=== PATIENT | male | born 1970 | race Caucasian/White ===

== ENCOUNTER 2017-03-29 12:38 | Inpatient (IN) | payer OTHER ==
--- NOTE | 2017-03-29 13:43 | Emergency Department Report ---
Entered by SETH ARROYO, acting as scribe for YURIDIA DENTON NP. Chief Complaint: Extremity Injury, Lower Stated Complaint: LFT FOOT INFECTION Time Seen by Provider: 03/29/17 13:36 - HPI History of Present Illness: 46 y/o non-toxic, non ill-appearing male in no acute distress presents to ED c/ o left foot pain, swelling, numbness with sore noted. Reports small blister on his foot 3 months ago that has progressively worsened. Denies fever or reduced ROM. Foot wrapped [employer]ANDER by clinic this morning, referred to ED. Stock Tracer used, pt speaks romanian. - ROS Review of Systems: - chest pain, SOB, abdominal pain, fever + numbness, pain, ulceration with swelling to left plantar foot - Exam Vital Signs: Vital Signs 03/29/17 13:27 Temperature 99.8 F H Pulse Rate 101 H Respiratory 18 Rate Blood Pressure 145/97 O2 Sat by Pulse 98 Oximetry Physical Exam: Left foot: 2+ edema, warm to touch. Skin: ulceration noted to plantar of left foot. MSE screening note: Focused history and physical exam performed. Due to findings the following was ordered: Lactic Acid, CMP, CBC, CK, INR ED Disposition for MSE Condition: Stable This documentation as recorded by the scribe,SETH ARROYO,accurately reflects the service I personally performed and the decisions made by BERTIN caputo MARTIN, JACQUES.
[2017-03-29 14:03] LABS: Basophils % (Auto) 0.2 % (0.0-1.8); Eosinophils % (Auto) 0.1 % (0.0-4.3); Hematocrit 45.8 % (35.5-45.6); Hemoglobin 15.3 gm/dl (11.8-15.2); Mean Corpuscular HGB Conc 33 % (32-34); Mean Corpuscular Hemoglobin 30 pg (28-32); Mean Corpuscular Volume 89 fl (84-94); Platelet Count 190 K/mm3 (140-440); Red Blood Count 5.14 M/mm3 (3.65-5.03); White Blood Count 17.3 K/mm3 (4.5-11.0)
[2017-03-29 14:13] LABS: INR 1.01 (0.87-1.13)
[2017-03-29 14:24] LABS: Alanine Aminotransferase 48 units/L (7-56); Albumin 4.2 g/dL (3.9-5); Albumin/Globulin Ratio 1.2 %; Alkaline Phosphatase 99 units/L (35-129); Anion Gap 22 mmol/L; BUN/Creatinine Ratio 17.14; Blood Urea Nitrogen 12 mg/dL (9-20); Calcium 9.1 mg/dL (8.4-10.2); Carbon Dioxide 23 mmol/L (22-30); Chloride 90.6 mmol/L (98-107); Creatine Kinase 85 units/L (55-170); Glucose 310 mg/dL (75-100); Potassium 4.6 mmol/L (3.6-5.0); Sodium 131 mmol/L (137-145); Total Protein 7.8 g/dL (6.3-8.2)
[2017-03-29] MEDS ORDERED: TYLENOL PO ONE (20:02)
[2017-03-29] MEDS ORDERED: VANCOMYCIN/NS 1 GM/250 ML 1 GM/250 ML BAG IV ONE (20:02)
--- NOTE | 2017-03-29 20:05 | Emergency Department Report ---
HPI - General Chief Complaint: Extremity Injury, Lower Time Seen by Provider: 03/29/17 19:33 - HPI HPI: This is a 46-year-old male who presents to the emergency department with complaint of pain and infection to the bottom of the left foot is been going on for about the past 3 months. The patient is a diabetic but is not currently on any medications over the past few months. He has not taken anything for his pain prior to presentation. His and one crutch in order to ambulate and try not to bear weight on that foot. Patient was sent in by Dr Meadows of [facility] referencing an infected foot ulcer. ED Past Medical Hx - Past Medical History Previous Medical History?: Yes Hx Diabetes: Yes Additional medical history: left foot infection/pain - Surgical History Past Surgical History?: Yes Additional Surgical History: left knee - Social History Smoking Status: Never Smoker Substance Use Type: Alcohol, Prescribed - Medications Home Medications: Home Medications Medication Instructions Recorded Confirmed Last Taken Type metFORMIN [Glucophage] 500 mg PO BID 06/18/16 03/29/17 Unknown History ED Review of Systems ROS: Stated complaint: LFT FOOT INFECTION Other details as noted in HPI Comment: All other systems reviewed and negative Constitutional: denies: chills, fever Eyes: denies: eye pain, eye discharge, vision change ENT: denies: ear pain, throat pain Respiratory: denies: cough, shortness of breath, wheezing Cardiovascular: denies: chest pain, palpitations Gastrointestinal: denies: abdominal pain, nausea, diarrhea Genitourinary: denies: urgency, dysuria Musculoskeletal: arthralgia. denies: back pain Skin: lesions, other (ulcer/wound) Neurological: denies: headache, weakness, paresthesias Physical Exam - Physical Exam Vital Signs: Vital Signs 03/29/17 03/29/17 13:27 19:32 Temperature 99.8 F H Pulse Rate 101 H 98 H Respiratory 18 18 Rate Blood Pressure 145/97 Blood Pressure 131/84 [Left] O2 Sat by Pulse 98 98 Oximetry Physical Exam: GENERAL: The patient is well-developed well-nourished. HEENT: Normocephalic. Atraumatic. Extraocular motions are intact. Patient has moist mucous membranes. Pupils equal reactive to light bilaterally. NECK: Supple. Trachea is midline. CHEST/LUNGS: Clear to auscultation. There is no respiratory distress noted. HEART/CARDIOVASCULAR: Regular. There is no tachycardia. There is no gallop rub or murmur. ABDOMEN: Abdomen is soft, nontender. Patient has normal bowel sounds. There is no abdominal distention. SKIN: There is some warmth and nonpitting swelling to the circumferential left foot. There is some mild erythema to the left foot as well. There is a circular ulceration to the distal plantar left foot that is about 3 cm in diameter and is a stage II. No current bleeding, weeping or drainage. NEURO: The patient is awake, alert, and oriented. The patient is cooperative. The patient has no focal neurologic deficits. The patient has normal speech. MUSCULOSKELETAL: There is some tenderness to palpation to the left foot where the patient has a diabetic ulcer and possible cellulitis. Cap refill less than 2 seconds. Pedal pulses +2 over 4 bilaterally. ED Course Vital Signs 03/29/17 03/29/17 13:27 19:32 Temperature 99.8 F H Pulse Rate 101 H 98 H Respiratory 18 18 Rate Blood Pressure 145/97 Blood Pressure 131/84 [Left] O2 Sat by Pulse 98 98 Oximetry ED Medical Decision Making - Lab Data Result diagrams: 03/29/17 13:50 03/29/17 13:50 - Radiology Data Radiology results: report reviewed, image reviewed interpreted by me: X-ray of the left foot shows some soft tissue swelling but otherwise no signs of osteomyelitis, fracture, dislocation or any other acute process. CT of the left foot shows osseous structures are intact without an acute fracture or dislocation. Bone mineralization is normal. No evidence of generalized or localized osteopenia. There is a moderate soft tissue swelling of the midfoot and forefoot with no evidence of formed abscess. Cellulitis suspected. - Medical Decision Making 46-year-old male presents with a progressively worsening left foot ulceration and pain with concern for infection, sent in by his PCP. Patient has a fever, leukocytosis and is diabetic. X-ray did not show any signs of osteomyelitis. A CT was done with IV contrast to look for abscess but no abscess was found. There is no sign of any gangrene or any gas forming bacterial infection. However there is some swelling with concern for cellulitis. Patient was started on antibiotics after blood cultures were obtained. He will be admitted to the hospital for further evaluation and treatment and is been accepted for admission by the hospitalist, Dr. Hoang. - Differential Diagnosis abscess, osteomyelitis, cellulitis Critical Care Time: No Critical care attestation.: If time is entered above; I have spent that time in minutes in the direct care of this critically ill patient, excluding procedure time. ED Disposition Clinical Impression: Cellulitis of foot, Hyperglycemia Diabetic foot ulcer Qualifiers: Diabetic foot ulcer location: midfoot Diabetes mellitus type: type 1 Laterality : left Non-pressure ulcer stage: unspecified non-pressure ulcer stage Qualified Code(s): E10.621 - Type 1 diabetes mellitus with foot ulcer; L97.429 - Non- pressure chronic ulcer of left heel and midfoot with unspecified severity Leukocytosis Qualifiers: Leukocytosis type: unspecified Qualified Code(s): D72.829 - Elevated white blood cell count, unspecified Disposition: OP ADMITTED IP TO THIS HOSP Is pt being admited?: Yes Condition: Stable Instructions: Diabetes Mellitus Type 2 in Adults (ED) Referrals: PRIMARY CARE, [Primary Care Provider] - 3-5 Days Time of Disposition: 01:48
[2017-03-29] MEDS ORDERED: NACL 0.9% 1000 ML 1,000 ML IV ONE (21:36)
--- NOTE | 2017-03-29 22:10 | XRay Report ---
FINAL REPORT PROCEDURE: XR FOOT 3 LT TECHNIQUE: Left foot, three views HISTORY: foot pain, infection, r/o osteomyelitis COMPARISON: No prior studies are available for comparison. FINDINGS: No acute fracture or dislocation is seen. No radiopaque foreign body is seen. No cortical erosions are visible. IMPRESSION: No cortical erosions are identified to suggest advanced osteomyelitis. If there is concern for early osteomyelitis, recommend evaluation with MRI
[2017-03-29] MEDS ORDERED: NACL ONE (22:23)
--- NOTE | 2017-03-30 00:14 | Cat Scan Report ---
FINAL REPORT PROCEDURE: CT LOWER EXTREMITY LT W CON TECHNIQUE: Computerized axial tomography of the LEFT foot was performed after the IV injection of iodinated nonionic contrast. HISTORY: Foot infection, abscess COMPARISON: Left foot x-ray of the same date FINDINGS: Bony structures including marrow spaces: Normal. Neurovascular structures: Normal. Soft tissues: Moderate soft tissue swelling in the mid foot and forefoot. This is consistent with cellulitis. No formed abscess.. Joint space: Normal. Abnormal enhancement: None. IMPRESSION: The osseous structures are intact without an acute fracture or dislocation. The bone mineralization is normal. No evidence of generalized or localized osteopenia. There is moderate soft tissue swelling in the midfoot and forefoot with no evidence of formed abscess. Cellulitis is suspected..
[2017-03-30] MEDS ORDERED: TYLENOL PO PRN (04:04)
[2017-03-30] MEDS ORDERED: DULCOLAX PR PRN (04:04)
[2017-03-30] MEDS ORDERED: ZOFRAN IV PRN (04:04)
[2017-03-30] MEDS ORDERED: MILK OF MAGNESIA PO PRN (04:04)
--- NOTE | 2017-03-30 04:07 | History and Physical Report ---
History of Present Illness Date of examination: 03/30/17 History of present illness: 46-year-old man with a history of diabetes comes emergency room with complaint of left foot pain and swelling. 3 months ago he sustained the injury, he is not quite sure how that happened, he has been ambulating and working, and his pain has gotten worse. He has not taken any antibiotic or seen a physician, he denies any fever or chills Patient denies chest pain, palpitation, shortness of breath, cough, abdominal pain, hematochezia, dysuria, frequency, focal weakness, dysarthria, fever chills , polydipsia polyuria, hot or cold intolerance, easy bruisability, or rash or bleeding from mucosal membrane, rhinorrhea, epistaxis, earache, tinnitus, blurry vision, eye discharge, anxiety, depression. Other review of systems negative PAST SURGICAL HISTORY: Knee surgery SOCIAL HISTORY: Denies all, tobacco, drugs FAMILY HISTORY: Diabetes Medications and Allergies Allergies Allergy/AdvReac Type Severity Reaction Status Date / Time No Known Allergies Allergy Verified 06/18/16 10:33 Home Medications Medication Instructions Recorded Confirmed Last Taken Type metFORMIN [Glucophage] 500 mg PO BID 06/18/16 03/29/17 Unknown History Exam - Physical Exam Narrative exam: Gen. appearance: Patient lying in bed, no apparent distress HEENT: Normocephalic, atraumatic, pupils equally round and reactive to light, extraocular movement intact, and no sclericterus,. No JVD or thyromegaly or nodule,neck supple, no carotid bruit ,mucous membranes moist, no exudate or erythema Heart: S1, S2, regular rate and rhythm Lungs: Clear to auscultation bilaterally, breathing comfortable Abdomen: Positive bowel sounds, nontender, nondistended, no organomegaly Extremity: Left foot on the bottom, tender, swollen, no erythema, purulent discharge noted , No cyanosis, clubbing Skin: No rash, nodules, warm, dry Neuro: Oriented 3, cranial nerves II-12 intact, speech is fluent, motor and sensory intact - Constitutional Vitals: Temp Pulse Resp BP Pulse Ox 99.8 F H 84 16 107/69 99 03/29/17 13:27 03/30/17 00:00 03/30/17 00:00 03/30/17 00:00 03/30/17 00:00 Results - Labs CBC & Chem 7: 03/29/17 13:50 03/29/17 13:50 Labs: Abnormal lab results 03/29/17 03/29/17 03/29/17 Range/Units 13:22 13:50 13:50 WBC 17.3 H (4.5-11.0) K/mm3 RBC 5.14 H (3.65-5.03) M/mm3 Hgb 15.3 H (11.8-15.2) gm/dl Hct 45.8 H (35.5-45.6) % Lymph % (Auto) 4.2 L (13.4-35.0) % [place] % (Auto) 7.7 H (0.0-7.3) % Lymph # 0.7 L (1.2-5.4) K/mm3 [place] # 1.3 H (0.0-0.8) K/mm3 Seg Neutrophils % 87.8 H (40.0-70.0) % Seg Neutrophils # 15.2 H (1.8-7.7) K/mm3 Sodium 131 L (137-145) mmol/L Chloride 90.6 L (98-107) mmol/L Creatinine 0.7 L (0.8-1.5) mg/dL Glucose 310 H (75-100) mg/dL POC Glucose 276 H (70-105) 03/30/17 Range/Units 00:05 WBC (4.5-11.0) K/mm3 RBC (3.65-5.03) M/mm3 Hgb (11.8-15.2) gm/dl Hct (35.5-45.6) % Lymph % (Auto) (13.4-35.0) % [place] % (Auto) (0.0-7.3) % Lymph # (1.2-5.4) K/mm3 [place] # (0.0-0.8) K/mm3 Seg Neutrophils % (40.0-70.0) % Seg Neutrophils # (1.8-7.7) K/mm3 Sodium (137-145) mmol/L Chloride (98-107) mmol/L Creatinine (0.8-1.5) mg/dL Glucose (75-100) mg/dL POC Glucose 252 H (70-105) Assessment and Plan Diabetic foot ulcer Diabetes type 2 Admit to medicine Start IV Zosyn, obtain wound culture, follow blood cultures start morphine for pain, DVT prophylaxis Check fingersticks and start insulin sliding scale
[2017-03-30] MEDS: ZOSYN/NS 4.5GM/100ML 4.5 GM/100 ML VIAL IV SCH ×3 (05:52→21:20)
[2017-03-30] MEDS ORDERED: D50W (25GM) IV PRN (06:04)
[2017-03-30] MEDS: NOVOLOG SUB-Q SCH ×4 (07:54→22:33)
--- NOTE | 2017-03-30 11:12 | Admit Criteria Form ---
Admission Criteria Documentation: CELLULITIS Clinical Indications for Admission to Inpatient Care (Place 'X' for any and all applicable criteria): Admission is indicated for ANY ONE of the following(1)(2)(3)(4)(5): [ ]I. Limb-threatening infection [X]II. High-risk comorbid condition as indicated by ANY ONE of the following: [X]a) Uncontrolled diabetes (eg, HbA1c greater than 10% (0.1)) [ ]b) Cirrhosis [ ]c) Neutropenia [ ]d) Asplenia [ ]e) Immunosuppression [ ]f) Symptomatic heart failure [ ]III. Failure of outpatient therapy as indicated by ALL of the following: [ ]a) Progression or no improvement after adequate trial (minimum of 48 hours, with longer period for stable lower extremity infection) [ ]b) Adequate antibiotic regimen as indicated by use of ANY ONE of the following: [ ]i) First-generation cephalosporin (e.g., cephalexin) [ ]ii) Antistaphylococcal penicillin (e.g., dicloxacillin) [ ]iii) Penicillin-allergic patient regimen (clindamycin, extended-spectrum fluoroquinolone, or doxycycline) [ ]iv) Resistant organism (eg, methicillin-resistant Staphylococcus aureus) regimen (6) [ ]c) Outpatient intravenous therapy regimen is not appropriate due to ANY ONE of the following. (7)(8)(9)(10): [ ]i) It was tried and was not successful (eg, progression of infection). [ ]ii) It is not available or cannot be arranged in a clinically appropriate time frame (e.g., the next day). [ ]iii) Clinical presentation (eg, acuity of infection, rapidity of progression, confirmed or suspected bacteremia) is judged to require ALL of the following: [ ]1) Immediate initiation of intravenous therapy ( eg, cannot wait for next day) [ ]2) Intensity of patient monitoring and observation (eg, vital sign measurement, checks for infection progression) that cannot be provided at other than inpatient level of care [ ]IV. Mental status changes [ ]V. Bacteremia [ ]. Hemodynamic instability [ ]VII. Suspected necrotizing soft tissue infection (e.g., gas in tissue)(11)( 12) [ ]VIII. Orbital infection (13)(14) [ ]IX. Associated surgical procedure (e.g., abscess drainage, debridement) not amenable to outpatient, emergency department, or observation care [ ]X. Cutaneous gangrene [ ]XI. High fever (temperature greater than 39.5 degrees C (103.1 degrees F) (oral)) not responsive to outpatient, emergency department, or observation care therapy [ ]XIII. Inpatient admission required rather than observation care (Also use Cellulitis: Observation Care as appropriate) because of ANY ONE of the following : [ ]a) Periorbital or perineal infection that is severe or worsening [ ]b) Severe pain requiring acute inpatient management [ ]c) IV fluid to replace significant ongoing (e.g., for over 24 hours) losses (greater than 3L/m2 per day) [ ]d) Compartment syndrome monitoring (17) [ ]e) Strict or protective (eg, laminar flow) isolation [ ]f) Urgent debridement or skin grafting [ ]g) Bone or joint debridement [ ]h) Immediate inpatient surgery [ ]i) Other condition, treatment or monitoring requiring inpatient admission Extended stay beyond goal length of stay may be needed for (1)(18): [ ]a) Necrotizing soft tissue infection or fasciitis [ ]b) Gram-negative infection [ ]c) Methicillin-resistant Staphylococcal aureus (MRSA) infection [ ]d) Peripheral venous insufficiency with cellulitis [ ]e) Extensive edema [ ]f) Sepsis or continued Hemodynamic instability [ ]g) Continued high fever or mental status change [ ]h) Bacteremia [ ]i) Active serious comorbid conditions ( eg, heart failure, renal insufficiency) The original [employer] [facility] content created by [employer] [email or web address] has been revised. The portions of the content which have been revised are identified through the use of italic text or in bold, and [facility] has neither reviewed nor approved the modified material. All other unmodified content is copyright [facility] [employer] [facility] Please see references footnoted in the original [facility] [employer] edition 2016 Admission Criteria Met: Yes
[2017-03-30] MEDS: LOVENOX SUB-Q SCH (12:10)
--- NOTE | 2017-03-30 15:53 | Consultation ---
History of Present Illness - Reason for Consult Consult date: 03/30/17 - History of Present Illness Mr. Lee is a 46-year-old man with uncontrolled diabetes who presents with left foot pain, which is concerning for a diabetic foot infection. He says he initially injured the same foot 2-3 months ago. Plain film imaging of his left foot showed no foreing body. A CT left leg also showed no abscess or definitive evidence of osteomyelitis. There were features of cellulitis. Blood cultures remain in progress. A left foot wound shows a mild inflammatory response and polymicrobial roverto. He is prescribed Zosyn empirically. ID is consulted for further antibiotic recommendations. Past History Past Medical History: diabetes Social history: lives with family. denies: IV drug use Family history: diabetes Medications and Allergies Allergies Allergy/AdvReac Type Severity Reaction Status Date / Time No Known Allergies Allergy Verified 06/18/16 10:33 Home Medications Medication Instructions Recorded Confirmed Last Taken Type metFORMIN [Glucophage] 500 mg PO BID 06/18/16 03/29/17 Unknown History Active Meds: Active Medications Acetaminophen (Tylenol) 650 mg PO Q4H PRN PRN Reason: Pain MILD(1-3)/Fever >100.5/GASTELUM Last Admin: 03/30/17 15:22 Dose: 650 mg Bisacodyl (Dulcolax) 10 mg [place] QDAY PRN PRN Reason: Constipation unrelieved by MOM Dextrose (D50w (25gm)) 50 ml IV PRN PRN PRN Reason: Hypoglycemia Enoxaparin Sodium (Lovenox) 40 mg SUB-Q QDAY [facility] Last Admin: 03/30/17 12:10 Dose: 40 mg Piperacillin Sod/Tazobactam Sod (Zosyn/Ns 4.5gm/100ml) 4.5 gm in 100 mls @ 200 mls/hr IV Q8HR [facility] PRN Reason: Protocol Last Admin: 03/30/17 13:56 Dose: 200 mls/hr Insulin Aspart (Novolog) 0 units SUB-Q ACHS [facility] PRN Reason: Protocol Last Admin: 03/30/17 12:20 Dose: 4 units Magnesium Hydroxide (Milk Of Magnesia) 30 ml PO Q4H PRN PRN Reason: Constipation Morphine Sulfate (Morphine) 2 mg IV Q4H PRN PRN Reason: Pain, Moderate (4-6) Ondansetron HCl (Zofran) 4 mg IV Q8H PRN PRN Reason: N/V unrelieved by Reglan Review of Systems All systems: negative (except as noted below) Constitutional: no fever, no chills, no sweats Cardiovascular: no chest pain, no shortness of breath Respiratory: no cough, no shortness of breath Gastrointestinal: no nausea, no vomiting, no diarrhea Musculoskeletal: leg numbness/tingling, other (left foot pain) Integumentary: no rash, no pruritis Physical Examination - Constitutional Vitals: Vital Signs Temp Pulse Resp BP Pulse Ox 99.8 F H 74 18 113/69 96 03/30/17 07:00 03/30/17 07:00 03/30/17 07:00 03/30/17 07:00 03/30/17 07:00 Temperature -Last 24 Hours Temperature 99.8 F Temperature 99.5 F General appearance: Present: no acute distress, well-nourished - EENT Eyes: Absent: conjunctival injection - Neck Neck: Present: supple - Respiratory Respiratory effort: normal Respiratory: bilateral: CTA, negative: wheezing - Cardiovascular Rhythm: regular Heart Sounds: Present: S1 & S2 - Extremities Extremities: No edema Extremity abnormal: other (left foot with a packed plantar ulcer at base of 3rd- 4th toes, minimal surrounding erythema, no increased warmth) - Abdominal General gastrointestinal: Present: soft, non-distended - Integumentary Integumentary: Absent: rash Results - Labs CBC & Chem 7: 03/29/17 13:50 03/29/17 13:50 Labs: Abnormal lab results 03/30/17 03/30/17 Range/Units 06:08 11:33 POC Glucose 211 H 234 H (70-105) Microbiology 03/30/17 05:00 Foot - Left Wound Culture - Preliminary 03/29/17 20:43 Peripheral/Venous Blood Culture - Preliminary Culture in Progress 03/29/17 20:10 Peripheral/Venous Blood Culture - Preliminary Culture in Progress Left Foot Xray - no foreign body; cannot fully exclude osteomyelitis CT Left Lower Extremity - no abscess; cellulitis Assessment and Plan - Patient Problems (1) Cellulitis of foot Current Visit: Yes Status: Acute Plan to address problem: 1. Good glycemic control. 2. Antibiotics for 10-14 days using wound culture results to guide therapy. (2) Diabetic foot ulcer Current Visit: Yes Status: Acute Qualifiers: Diabetic foot ulcer location: midfoot Diabetes mellitus type: type 1 Laterality: left Non-pressure ulcer stage: unspecified non-pressure ulcer stage Qualified Code(s): E10.621 - Type 1 diabetes mellitus with foot ulcer; L97.429 - Non-pressure chronic ulcer of left heel and midfoot with unspecified severity Plan to address problem: 1. Await results of wound culture. Anticipate oral option to complete at home, perhaps 10-14-day course. 2. Keep current antibiotic for now.
[2017-03-31 04:59] LABS: Basophils % (Auto) 0.3 % (0.0-1.8); Eosinophils % (Auto) 0.6 % (0.0-4.3); Hematocrit 39.7 % (35.5-45.6); Hemoglobin 13.3 gm/dl (11.8-15.2); Mean Corpuscular HGB Conc 34 % (32-34); Mean Corpuscular Hemoglobin 29 pg (28-32); Mean Corpuscular Volume 87 fl (84-94); Platelet Count 184 K/mm3 (140-440); Red Blood Count 4.57 M/mm3 (3.65-5.03); Red Cell Distribution Width 13.5 % (13.2-15.2); White Blood Count 11.6 K/mm3 (4.5-11.0)
[2017-03-31 05:08] LABS: Anion Gap 17 mmol/L; BUN/Creatinine Ratio 14.28; Blood Urea Nitrogen 10 mg/dL (9-20); Calcium 8.4 mg/dL (8.4-10.2); Carbon Dioxide 25 mmol/L (22-30); Chloride 96.3 mmol/L (98-107); Glucose 224 mg/dL (75-100); Potassium 4.2 mmol/L (3.6-5.0); Sodium 134 mmol/L (137-145)
[2017-03-31] MEDS: ZOSYN/NS 4.5GM/100ML 4.5 GM/100 ML VIAL IV SCH ×3 (05:43→22:59)
[2017-03-31] MEDS: NOVOLOG SUB-Q SCH ×4 (08:19→22:59)
--- NOTE | 2017-03-31 09:25 | Progress Note ---
Assessment and Plan Assessment and plan: 46-year-old male with a past medical history of uncontrolled diabetes who stopped taking his diabetes medications and insulins 3 months prior to presentation. He was concerned that diabetes medications would make him blind, over the course of these 3 months he had worsening swelling and pain and erythema in his left foot, symptoms worsened prompting him to go to be seen in the clinic within sent him to our emergency room for further care. He was found to have left diabetic foot infection, did not meet sepsis criteria. An uncontrolled diabetes with hyperglycemia 1. Diabetic foot infection/cellulitis Continue broad-spectrum antibiotics, follow up wound cultures, ID input appreciated 2. Uncontrolled diabetes with hyperglycemia Optimize insulins and/or add oral medications today 3. Left diabetic foot ulcer , present on admission Wound care 4. Hyponatremia Most likely due to hyperglycemia, controlled glucose History Interval history: He is complaining of pain in his left third, pain is about 6-7 out of 10, exacerbated by bearing weight on it, pain is dull, pain does not radiate. He had a low-grade fever overnight Hospitalist Physical - Physical exam Narrative exam: General: Patient appears well in no distress HEENT: MMM, EOMI cardiac: S1-S2 heard lungs: clear to auscultation, abdomen: soft, nontender, nondistended bowel sounds positive extremities: Left foot swelling, erythema, tenderness, there is a 1 x 1 cm ulcer on the dorsum of the foot with mucopurulent discharge Skin: no rash or lesion Neuro: no focal deficit Psych: appropriate behavior and mood, cognition intact - Constitutional Vitals: Temp Pulse Resp BP Pulse Ox 98.9 F 70 18 116/75 98 03/31/17 08:00 03/31/17 08:00 03/31/17 08:00 03/31/17 08:00 03/31/17 08:00 General appearance: Present: no acute distress, well-nourished Results - Labs CBC & Chem 7: 03/31/17 04:18 03/31/17 04:18 Labs: Laboratory Last Values WBC 11.6 K/mm3 (4.5-11.0) H 03/31/17 04:18 RBC 4.57 M/mm3 (3.65-5.03) 03/31/17 04:18 Hgb 13.3 gm/dl (11.8-15.2) 03/31/17 04:18 Hct 39.7 % (35.5-45.6) D 03/31/17 04:18 MCV 87 fl (84-94) 03/31/17 04:18 MCH 29 pg (28-32) 03/31/17 04:18 MCHC 34 % (32-34) 03/31/17 04:18 RDW 13.5 % (13.2-15.2) 03/31/17 04:18 Plt Count 184 K/mm3 (140-440) 03/31/17 04:18 Lymph % (Auto) 7.5 % (13.4-35.0) L 03/31/17 04:18 [place] % (Auto) 9.2 % (0.0-7.3) H 03/31/17 04:18 Eos % (Auto) 0.6 % (0.0-4.3) 03/31/17 04:18 Baso % (Auto) 0.3 % (0.0-1.8) 03/31/17 04:18 Lymph # 0.9 K/mm3 (1.2-5.4) L 03/31/17 04:18 [place] # 1.1 K/mm3 (0.0-0.8) H 03/31/17 04:18 Eos # 0.1 K/mm3 (0.0-0.4) 03/31/17 04:18 Baso # 0.0 K/mm3 (0.0-0.1) 03/31/17 04:18 Seg Neutrophils % 82.4 % (40.0-70.0) H 03/31/17 04:18 Seg Neutrophils # 9.6 K/mm3 (1.8-7.7) H 03/31/17 04:18 PT 13.2 Sec. (12.2-14.9) 03/29/17 13:50 INR 1.01 (0.87-1.13) 03/29/17 13:50 VBG pH 7.389 (7.320-7.420) 03/29/17 20:10 Sodium 134 mmol/L (137-145) L 03/31/17 04:18 Potassium 4.2 mmol/L (3.6-5.0) 03/31/17 04:18 Chloride 96.3 mmol/L (98-107) L 03/31/17 04:18 Carbon Dioxide 25 mmol/L (22-30) 03/31/17 04:18 Anion Gap 17 mmol/L 03/31/17 04:18 BUN 10 mg/dL (9-20) 03/31/17 04:18 Creatinine 0.7 mg/dL (0.8-1.5) L 03/31/17 04:18 Estimated GFR > 60 ml/min 03/31/17 04:18 BUN/Creatinine Ratio 14.28 % 03/31/17 04:18 Glucose 224 mg/dL (75-100) H 03/31/17 04:18 POC Glucose 227 (70-105) H 03/31/17 05:55 Lactic Acid 1.70 mmol/L (0.7-2.0) 03/29/17 20:10 Calcium 8.4 mg/dL (8.4-10.2) 03/31/17 04:18 Total Bilirubin 0.60 mg/dL (0.1-1.2) 03/29/17 13:50 AST 18 units/L (5-40) 03/29/17 13:50 ALT 48 units/L (7-56) 03/29/17 13:50 Alkaline Phosphatase 99 units/L (35-129) 03/29/17 13:50 Total Creatine Kinase 85 units/L (55-170) 03/29/17 13:50 Total Protein 7.8 g/dL (6.3-8.2) 03/29/17 13:50 Albumin 4.2 g/dL (3.9-5) 03/29/17 13:50 Albumin/Globulin Ratio 1.2 % 03/29/17 13:50
[2017-03-31] MEDS: LOVENOX SUB-Q SCH (11:00)
[2017-03-31] MEDS: GLUCOTROL PO SCH (17:42)
[2017-03-31] MEDS: GLUCOPHAGE PO SCH (17:42)
[2017-04-01] MEDS: GLUCOPHAGE PO SCH ×2 (08:18→16:59)
[2017-04-01] MEDS: NOVOLOG SUB-Q SCH ×4 (08:18→22:53)
[2017-04-01] MEDS: GLUCOTROL PO SCH ×2 (08:18→17:06)
--- NOTE | 2017-04-01 08:19 | Progress Note ---
Assessment and Plan - Patient Problems (1) Cellulitis of foot Current Visit: Yes Status: Acute Plan to address problem: 1. There are new collections on the left plantar foot that may require drainage and culture prior to patient's discharge today. 2. Two predominant GNRs isolated, but waiting final wound culture result from the original I&D to direct antimicrobial therapy. 3. Anticipate adequate coverage from Levaquin (no Cipro substitution). Will change to this now to complete a 14-day course (stop date April 13, 2017). 4. Continue local wound care and good glycemic control, also close outpatient PCP or ID follow-up. 5. WBC count is improved since admission. (2) Diabetic foot ulcer Current Visit: Yes Status: Acute Qualifiers: Diabetic foot ulcer location: midfoot Diabetes mellitus type: type 1 Laterality: left Non-pressure ulcer stage: unspecified non-pressure ulcer stage Qualified Code(s): E10.621 - Type 1 diabetes mellitus with foot ulcer; L97.429 - Non-pressure chronic ulcer of left heel and midfoot with unspecified severity Plan to address problem: Patient has an apparent new collection at his plantar left foot. Recommend drainage and culture of this prior to discharge. Subjective Date of service: 04/01/17 Interval history: Low-grade temperatures noted intermittently. Otherwise no new clinical issues per patient. Objective - Constitutional Vitals: Vital Signs Temp Pulse Resp BP Pulse Ox 100.1 F H 74 20 121/75 96 04/01/17 00:00 04/01/17 00:00 04/01/17 00:00 04/01/17 00:00 04/01/17 00:00 Temperature -Last 24 Hours Temperature 100.1 F Temperature 98.8 F General appearance: Present: no acute distress - Respiratory Respiratory effort: normal - Cardiovascular Rhythm: regular Extremity abnormal: edema (mild edema left foot) - Gastrointestinal General gastrointestinal: Present: non-distended - Integumentary Integumentary: no rash - Musculoskeletal Musculoskeletal: other (open ulcer of left plantar foot with small amount of seropurulent drainage; there are 2 additional foci proximal to the open ulcer with fluctuance concerning for small abscesses) - Labs CBC & Chem 7: 03/31/17 04:18 03/31/17 04:18 Labs: Abnormal lab results 03/31/17 03/31/17 03/31/17 Range/Units 11:38 16:35 21:49 POC Glucose 228 H 225 H 178 H (70-105) 04/01/17 Range/Units 06:15 POC Glucose 195 H (70-105) Microbiology 03/30/17 05:00 Foot - Left Wound Culture - Preliminary Gram Negative Juwan Gram Negative Juwan#2 03/29/17 20:43 Peripheral/Venous Blood Culture - Preliminary NO GROWTH AFTER 48 HOURS 03/29/17 20:10 Peripheral/Venous Blood Culture - Preliminary NO GROWTH AFTER 48 HOURS Active Medications Acetaminophen (Tylenol) 650 mg PO Q4H PRN PRN Reason: Pain MILD(1-3)/Fever >100.5/GASTELUM Last Admin: 03/30/17 15:22 Dose: 650 mg Bisacodyl (Dulcolax) 10 mg [place] QDAY PRN PRN Reason: Constipation unrelieved by MOM Dextrose (D50w (25gm)) 50 ml IV PRN PRN PRN Reason: Hypoglycemia Enoxaparin Sodium (Lovenox) 40 mg SUB-Q QDAY [facility] Last Admin: 03/31/17 11:00 Dose: 40 mg Glipizide (Glucotrol) 10 mg PO BIDDIAB [facility] Last Admin: 03/31/17 17:42 Dose: 10 mg Piperacillin Sod/Tazobactam Sod (Zosyn/Ns 4.5gm/100ml) 4.5 gm in 100 mls @ 200 mls/hr IV Q8HR [facility] PRN Reason: Protocol Last Admin: 03/31/17 22:59 Dose: 200 mls/hr Insulin Aspart (Novolog) 0 units SUB-Q ACHS [facility] PRN Reason: Protocol Last Admin: 03/31/17 22:59 Dose: 3 units Magnesium Hydroxide (Milk Of Magnesia) 30 ml PO Q4H PRN PRN Reason: Constipation Metformin HCl (Glucophage) 1,000 mg PO BIDDIAB [facility] Last Admin: 03/31/17 17:42 Dose: 1,000 mg Morphine Sulfate (Morphine) 2 mg IV Q4H PRN PRN Reason: Pain, Moderate (4-6) Ondansetron HCl (Zofran) 4 mg IV Q8H PRN PRN Reason: N/V unrelieved by Reglan
--- NOTE | 2017-04-01 08:55 | Discharge Summary ---
Providers - Providers Date of Admission: 03/30/17 04:04 Attending physician: LUCAS ROSARIO MD 03/30/17 07:44 Consult to Physician [CONS] Routine Consulting Provider: RICK DOYLE Reason For Exam: left foot diabetic infection Place consult to:: DR. DOYLE Notified:: DR. DOYLE Phone number called:: [phone] Was contact made?: Yes If yes, spoke with:: DR. 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 He was concerned that diabetes medications would make him blind, over the course of these 3 months he had worsening swelling and pain and erythema in his left foot, symptoms worsened prompting him to go to be seen in the clinic within sent him to our emergency room for further care. He was found to have left diabetic foot infection, did not meet sepsis criteria. An uncontrolled diabetes with hyperglycemia 1. Diabetic foot infection/cellulitis Continue broad-spectrum antibiotics, follow up wound cultures, ID input appreciated 2. Uncontrolled diabetes with hyperglycemia Optimize insulins and/or add oral medications today 3. Left diabetic foot ulcer , present on admission Wound care 4. Hyponatremia Most likely due to hyperglycemia, controlled glucose Disposition: DISCHARGED TO HOME OR SELFCARE Time spent for discharge: 35 minutes Core Measure Documentation - Palliative Care Palliative Care/ Comfort Measures: Not Applicable - Core Measures Any of the following diagnoses?: none Exam - Physical Exam Narrative exam: General: Patient appears well in no distress HEENT: MMM, EOMI cardiac: S1-S2 heard lungs: clear to auscultation, abdomen: soft, nontender, nondistended bowel sounds positive extremities: Left foot swelling, erythema, tenderness, there is a 1 x 1 cm ulcer on the dorsum of the foot with mucopurulent discharge Skin: no rash or lesion Neuro: no focal deficit Psych: appropriate behavior and mood, cognition intact - Constitutional Vitals: Temp Pulse Resp BP Pulse Ox 100.1 F H 74 20 121/75 96 04/01/17 00:00 04/01/17 00:00 04/01/17 00:00 04/01/17 00:00 04/01/17 00:00 Plan Follow up with: PRIMARY CARE, [Primary Care Provider] - 3-5 Days Prescriptions: glipiZIDE [Glucotrol] 10 mg PO BIDDIAB #60 tablet Levofloxacin [Levaquin TAB] 750 mg PO Q24HR #10 tablet Metformin HCl [Glucophage] 1,000 mg PO BID #60 tablet oxyCODONE /ACETAMINOPHEN [Percocet 5/325] 1 tab PO Q6HR PRN #30 tablet PRN Reason: Pain
[2017-04-01] MEDS: LOVENOX SUB-Q SCH (09:27)
[2017-04-01] MEDS: LEVAQUIN PO SCH (09:28)
[2017-04-01] MEDS: ZOSYN/NS 4.5GM/100ML 4.5 GM/100 ML VIAL IV SCH (09:28)
--- NOTE | 2017-04-01 15:48 | Progress Note ---
Assessment and Plan Assessment and plan: 46-year-old male with a past medical history of uncontrolled diabetes who stopped taking his diabetes medications and insulins 3 months prior to presentation. He was concerned that diabetes medications would make him blind, over the course of these 3 months he had worsening swelling and pain and erythema in his left foot, symptoms worsened prompting him to go to be seen in the clinic within sent him to our emergency room for further care. He was found to have left diabetic foot infection, did not meet sepsis criteria. An uncontrolled diabetes with hyperglycemia 1. Diabetic foot infection/cellulitis Continue broad-spectrum antibiotics, wound cultures reviewed, prelim growing gram negative rods, ID input appreciated awaiting orthopedic surgery eval, for possible debridement or I&D 2. Uncontrolled diabetes with hyperglycemia continue oral medications today and SSI, Diabetic diet, accuchecks 3. Left diabetic foot ulcer , present on admission Wound care 4. Hyponatremia Most likely due to hyperglycemia,improved with insulins History Interval history: He is complaining of pain in his left third, pain is about 6-7 out of 10, exacerbated by bearing weight on it, pain is dull, pain does not radiate. He had a low-grade fever overnight Hospitalist Physical - Physical exam Narrative exam: General: Patient appears well in no distress HEENT: MMM, EOMI cardiac: S1-S2 heard lungs: clear to auscultation, abdomen: soft, nontender, nondistended bowel sounds positive extremities: Left foot swelling, erythema, tenderness, there is a 1 x 1 cm ulcer on the dorsum of the foot with mucopurulent discharge, and a fluctuant tender area beside it Skin: no rash or lesion Neuro: no focal deficit Psych: appropriate behavior and mood, cognition intact - Constitutional Vitals: Temp Pulse Resp BP Pulse Ox 99.4 F 79 18 115/79 97 04/01/17 15:11 04/01/17 15:11 04/01/17 15:11 04/01/17 15:11 04/01/17 15:11 General appearance: Present: no acute distress Results - Labs CBC & Chem 7: 03/31/17 04:18 03/31/17 04:18 Labs: Laboratory Last Values WBC 11.6 K/mm3 (4.5-11.0) H 03/31/17 04:18 RBC 4.57 M/mm3 (3.65-5.03) 03/31/17 04:18 Hgb 13.3 gm/dl (11.8-15.2) 03/31/17 04:18 Hct 39.7 % (35.5-45.6) D 03/31/17 04:18 MCV 87 fl (84-94) 03/31/17 04:18 MCH 29 pg (28-32) 03/31/17 04:18 MCHC 34 % (32-34) 03/31/17 04:18 RDW 13.5 % (13.2-15.2) 03/31/17 04:18 Plt Count 184 K/mm3 (140-440) 03/31/17 04:18 Lymph % (Auto) 7.5 % (13.4-35.0) L 03/31/17 04:18 [place] % (Auto) 9.2 % (0.0-7.3) H 03/31/17 04:18 Eos % (Auto) 0.6 % (0.0-4.3) 03/31/17 04:18 Baso % (Auto) 0.3 % (0.0-1.8) 03/31/17 04:18 Lymph # 0.9 K/mm3 (1.2-5.4) L 03/31/17 04:18 [place] # 1.1 K/mm3 (0.0-0.8) H 03/31/17 04:18 Eos # 0.1 K/mm3 (0.0-0.4) 03/31/17 04:18 Baso # 0.0 K/mm3 (0.0-0.1) 03/31/17 04:18 Seg Neutrophils % 82.4 % (40.0-70.0) H 03/31/17 04:18 Seg Neutrophils # 9.6 K/mm3 (1.8-7.7) H 03/31/17 04:18 PT 13.2 Sec. (12.2-14.9) 03/29/17 13:50 INR 1.01 (0.87-1.13) 03/29/17 13:50 VBG pH 7.389 (7.320-7.420) 03/29/17 20:10 Sodium 134 mmol/L (137-145) L 03/31/17 04:18 Potassium 4.2 mmol/L (3.6-5.0) 03/31/17 04:18 Chloride 96.3 mmol/L (98-107) L 03/31/17 04:18 Carbon Dioxide 25 mmol/L (22-30) 03/31/17 04:18 Anion Gap 17 mmol/L 03/31/17 04:18 BUN 10 mg/dL (9-20) 03/31/17 04:18 Creatinine 0.7 mg/dL (0.8-1.5) L 03/31/17 04:18 Estimated GFR > 60 ml/min 03/31/17 04:18 BUN/Creatinine Ratio 14.28 % 03/31/17 04:18 Glucose 224 mg/dL (75-100) H 03/31/17 04:18 POC Glucose 221 (70-105) H 04/01/17 11:09 Lactic Acid 1.70 mmol/L (0.7-2.0) 03/29/17 20:10 Calcium 8.4 mg/dL (8.4-10.2) 03/31/17 04:18 Total Bilirubin 0.60 mg/dL (0.1-1.2) 03/29/17 13:50 AST 18 units/L (5-40) 03/29/17 13:50 ALT 48 units/L (7-56) 03/29/17 13:50 Alkaline Phosphatase 99 units/L (35-129) 03/29/17 13:50 Total Creatine Kinase 85 units/L (55-170) 03/29/17 13:50 Total Protein 7.8 g/dL (6.3-8.2) 03/29/17 13:50 Albumin 4.2 g/dL (3.9-5) 03/29/17 13:50 Albumin/Globulin Ratio 1.2 % 03/29/17 13:50
--- NOTE | 2017-04-01 15:53 | Consultation ---
History of Present Illness - [facility] Consult date: 04/01/17 Consult reason: joint pain History of present illness: A 46-year-old male with a six-year history of diabetes complaining of left foot pain increasing in intensity over the last 3 months she denies a history of overt trauma states the pain is gotten progressively worse over time denies a previous problem with his foot and lower extremities. Asked to evaluate and give treatment recommendations. Past History Past Medical History: diabetes Social history: lives with family. denies: IV drug use Family history: diabetes Medications and Allergies Allergies Allergy/AdvReac Type Severity Reaction Status Date / Time No Known Allergies Allergy Verified 06/18/16 10:33 Home Medications Medication Instructions Recorded Confirmed Last Taken Type Levofloxacin [Levaquin TAB] 750 mg PO Q24HR #10 tablet 04/01/17 Unknown Rx Metformin HCl [Glucophage] 1,000 mg PO BID #60 tablet 04/01/17 Unknown Rx glipiZIDE [Glucotrol] 10 mg PO BIDDIAB #60 tablet 04/01/17 Unknown Rx oxyCODONE /ACETAMINOPHEN [Percocet 1 tab PO Q6HR PRN #30 tablet 04/01/17 Unknown Rx 5/325] Active Meds: Active Medications Acetaminophen (Tylenol) 650 mg PO Q4H PRN PRN Reason: Pain MILD(1-3)/Fever >100.5/GASTELUM Last Admin: 03/30/17 15:22 Dose: 650 mg Bisacodyl (Dulcolax) 10 mg [place] QDAY PRN PRN Reason: Constipation unrelieved by MOM Dextrose (D50w (25gm)) 50 ml IV PRN PRN PRN Reason: Hypoglycemia Enoxaparin Sodium (Lovenox) 40 mg SUB-Q QDAY [facility] Last Admin: 04/01/17 09:27 Dose: 40 mg Glipizide (Glucotrol) 10 mg PO BIDDIAB [facility] Last Admin: 04/01/17 08:18 Dose: 10 mg Insulin Aspart (Novolog) 0 units SUB-Q ACHS [facility] PRN Reason: Protocol Last Admin: 04/01/17 12:19 Dose: 4 units Levofloxacin (Levaquin) 750 mg PO Q24HR [facility] Last Admin: 04/01/17 09:28 Dose: 750 mg Magnesium Hydroxide (Milk Of Magnesia) 30 ml PO Q4H PRN PRN Reason: Constipation Metformin HCl (Glucophage) 1,000 mg PO BIDDIAB [facility] Last Admin: 04/01/17 08:18 Dose: 1,000 mg Morphine Sulfate (Morphine) 2 mg IV Q4H PRN PRN Reason: Pain, Moderate (4-6) Ondansetron HCl (Zofran) 4 mg IV Q8H PRN PRN Reason: N/V unrelieved by Reglan Physical Examination - Physical exam Narrative exam: Physical examination a well-nourished well-developed male in no obvious distress today and again orthopedic examination relates to the left lower extremity. At the left foot on the plantar surface she was noted to have open draining wound with foul smelling odor, along the MTP's 2,3rd joints, no fluctulence palpated , moderate swelling and erythema to the arch xrays left foot - no obvious fx,dislocation or bony destruction seen Assessment and Plan deep infection/abscess left foot Recommendations =- hold discharge will require formal I&D in OR
[2017-04-01] MEDS: MORPHINE IV PRN (19:22)
[2017-04-02] MEDS: GLUCOPHAGE PO SCH ×2 (07:30→16:59)
[2017-04-02] MEDS: GLUCOTROL PO SCH ×2 (07:30→16:59)
[2017-04-02] MEDS: NOVOLOG SUB-Q SCH ×4 (07:36→23:16)
[2017-04-02] MEDS ORDERED: DILAUDID IV PRN (07:57)
--- NOTE | 2017-04-02 08:21 | Progress Note ---
Assessment and Plan - Patient Problems (1) Diabetic foot ulcer Current Visit: Yes Status: Acute Qualifiers: Diabetic foot ulcer location: midfoot Diabetes mellitus type: type 1 Laterality: left Non-pressure ulcer stage: unspecified non-pressure ulcer stage Qualified Code(s): E10.621 - Type 1 diabetes mellitus with foot ulcer; L97.429 - Non-pressure chronic ulcer of left heel and midfoot with unspecified severity Plan to address problem: Continue local and aggressive wound care with good glycemic control. (2) Abscess of left foot Current Visit: Yes Status: Acute Plan to address problem: 1. Planned surgical drainage today. This will allow better resolution with medical therapy. 2. Wound culture is positive for polymicrobial growth, namely near betancourt- susceptible Enterobacter and Klebsiella organisms along with group B Strep. 3. Levaquin (no Cipro substitution) should remain a viable treatment option for this infection. Will follow-up any additional culture data from surgical drainage. 4. Would continue antibiotics for a minimum 14-day course from date of drainage (~April 17, 2017). Subjective Date of service: 04/02/17 Principal diagnosis: Left Foot Abscess Interval history: Discharge to home held yesterday as left foot showed new foci concerning for abscesses. CT foot earlier in admission did not show any collections. He was on Zosyn, but changed to Levaquin yesterday. Wound cultures are positive for 2 separate Gram negative bacilli. Objective - Constitutional Vitals: Vital Signs Temp Pulse Resp BP Pulse Ox 100.1 F H 70 18 108/72 96 04/02/17 00:00 04/02/17 00:00 04/02/17 00:00 04/02/17 00:00 04/02/17 00:00 Temperature -Last 24 Hours Temperature 100.1 F Temperature 99.4 F General appearance: Present: no acute distress - Respiratory Respiratory effort: normal - Cardiovascular Rhythm: regular Heart Sounds: Present: S1 & S2 Extremity abnormal: edema (mild erythema, fading; fluctuant areas on plantar surface unchanged; open shallow ulcer also unchanged) - Integumentary Integumentary: no rash - Neurologic Neurologic: no focal deficits - Labs CBC & Chem 7: 03/31/17 04:18 03/31/17 04:18 Labs: Abnormal lab results 04/01/17 04/01/17 04/02/17 Range/Units 11:09 21:24 06:27 POC Glucose 221 H 200 H 207 H (70-105) Microbiology Microbiology 03/30/17 05:00 Foot - Left Wound Culture - Final Enterobacter Cloacae Klebsiella Oxytoca Beta Hemolytic Strep Group F 03/29/17 20:43 Peripheral/Venous Blood Culture - Preliminary NO GROWTH AFTER 72 HOURS 03/29/17 20:10 Peripheral/Venous Blood Culture - Preliminary NO GROWTH AFTER 72 HOURS Active Medications Acetaminophen (Tylenol) 650 mg PO Q4H PRN PRN Reason: Pain MILD(1-3)/Fever >100.5/GASTELUM Last Admin: 03/30/17 15:22 Dose: 650 mg Bisacodyl (Dulcolax) 10 mg [place] QDAY PRN PRN Reason: Constipation unrelieved by [facility] Dextrose (D50w (25gm)) 50 ml IV PRN PRN PRN Reason: Hypoglycemia Enoxaparin Sodium (Lovenox) 40 mg SUB-Q QDAY [facility] Last Admin: 04/01/17 09:27 Dose: 40 mg Glipizide (Glucotrol) 10 mg PO BIDDIAB [facility] Last Admin: 04/02/17 07:30 Dose: Not Given Hydromorphone HCl (Dilaudid) 0.25 mg IV Q10MIN PRN PRN Reason: Pain, Moderate (4-6) Stop: 04/05/17 07:58 Sodium Chloride (Nacl 0.9% 1000 Ml) 1,000 mls @ 100 mls/hr IV DIRECT [facility] Insulin Aspart (Novolog) 0 units SUB-Q ACHS [facility] PRN Reason: Protocol Last Admin: 04/02/17 07:36 Dose: 3 units Levofloxacin (Levaquin) 750 mg PO Q24HR [facility] Last Admin: 04/01/17 09:28 Dose: 750 mg Magnesium Hydroxide (Milk Of Magnesia) 30 ml PO Q4H PRN PRN Reason: Constipation Metformin HCl (Glucophage) 1,000 mg PO BIDDIAB [facility] Last Admin: 04/02/17 07:30 Dose: Not Given Morphine Sulfate (Morphine) 2 mg IV Q4H PRN PRN Reason: Pain, Moderate (4-6) Last Admin: 04/01/17 19:22 Dose: 2 mg Ondansetron HCl (Zofran) 4 mg IV Q8H PRN PRN Reason: N/V unrelieved by Reglan
--- NOTE | 2017-04-02 08:34 | Anesthesia Day of Surgery ---
Anesthesia Day of Surgery - Day of Surgery Patient Examined: Yes Patient H&P Reviewed: Yes Patient is NPO: Yes
--- NOTE | 2017-04-02 08:37 | Anesthesia Consultation ---
Anesthesia Consult and Med Hx Date of service: 04/02/17 - Airway Anesthetic Teeth Evaluation: Good ROM Head & Neck: Adequate Mental/Hyoid Distance: Adequate Mallampati Class: Class II Intubation Access Assessment: Probably Good - Pulmonary Exam CTA: Yes - Cardiac Exam Cardiac Exam: RRR - Pre-Operative Health Status ASA Pre-Surgery Classification: ASA2 Proposed Anesthetic Plan: General - Pulmonary Hx Smoking: No - Cardiovascular System Hx Hypertension: No - Gastrointestinal Hx Gastroesophageal Reflux Disease: No - Endocrine Hx Non-Insulin Dependent Diabetes: Yes - Other Systems Hx Cancer: No
[2017-04-02] MEDS ORDERED: DIPRIVAN 10 MG/ML IV ONE ×2 (11:17→13:13)
[2017-04-02] MEDS ORDERED: DILAUDID ONE (11:17)
[2017-04-02] MEDS ORDERED: XYLOCAINE MPF 2% ONE (11:19)
[2017-04-02] MEDS: NACL 0.9% 1000 ML 1,000 ML IV SCH ×2 (11:32→18:13)
[2017-04-02] MEDS ORDERED: NEOSPORIN GU IR ONE ×2 (12:49→13:39)
[2017-04-02] MEDS ORDERED: ZOFRAN ONE (13:13)
[2017-04-02] MEDS ORDERED: NACL 0.9% IR ONE (13:39)
--- NOTE | 2017-04-02 13:49 | Progress Note ---
Assessment and Plan Assessment and plan: 46-year-old male with a past medical history of uncontrolled diabetes who stopped taking his diabetes medications and insulins 3 months prior to presentation. He was concerned that diabetes medications would make him blind, over the course of these 3 months he had worsening swelling and pain and erythema in his left foot, symptoms worsened prompting him to go to be seen in the clinic within sent him to our emergency room for further care. He was found to have left diabetic foot infection, did not meet sepsis criteria. An uncontrolled diabetes with hyperglycemia 1. Diabetic foot infection/cellulitis Continue broad-spectrum antibiotics, wound cultures reviewed, prelim growing gram negative rods, ID input appreciated orthopedic surgery evsg, for debridement and I&D today 1 culture is reviewed growing Enterobacter cloaca and Klebsiella oxytoca, and beta hemolytic strep, sensitivities reviewed it is sensitive to Levaquin., Continue Levaquin 2. Uncontrolled diabetes with hyperglycemia continue oral medications today and SSI, Diabetic diet, accuchecks 3. Left diabetic foot ulcer , present on admission Wound care 4. Hyponatremia Most likely due to hyperglycemia,improved with insulins History Interval history: He is complaining of pain in his left third, pain is about 6-7 out of 10, exacerbated by bearing weight on it, pain is dull, pain does not radiate. He had a low-grade fever overnight Hospitalist Physical - Physical exam Narrative exam: General: Patient appears well in no distress HEENT: MMM, EOMI cardiac: S1-S2 heard lungs: clear to auscultation, abdomen: soft, nontender, nondistended bowel sounds positive extremities: Left foot swelling, erythema, tenderness, there is a 1 x 1 cm ulcer on the dorsum of the foot with mucopurulent discharge, and a fluctuant tender area beside it Skin: no rash or lesion Neuro: no focal deficit Psych: appropriate behavior and mood, cognition intact - Constitutional Vitals: Temp Pulse Resp BP Pulse Ox 97.9 F 71 16 123/89 97 04/02/17 10:45 04/02/17 10:45 04/02/17 10:45 04/02/17 10:45 04/02/17 10:45 General appearance: Present: no acute distress Results - Labs CBC & Chem 7: 03/31/17 04:18 03/31/17 04:18 Labs: Laboratory Last Values WBC 11.6 K/mm3 (4.5-11.0) H 03/31/17 04:18 RBC 4.57 M/mm3 (3.65-5.03) 03/31/17 04:18 Hgb 13.3 gm/dl (11.8-15.2) 03/31/17 04:18 Hct 39.7 % (35.5-45.6) D 03/31/17 04:18 MCV 87 fl (84-94) 03/31/17 04:18 MCH 29 pg (28-32) 03/31/17 04:18 MCHC 34 % (32-34) 03/31/17 04:18 RDW 13.5 % (13.2-15.2) 03/31/17 04:18 Plt Count 184 K/mm3 (140-440) 03/31/17 04:18 Lymph % (Auto) 7.5 % (13.4-35.0) L 03/31/17 04:18 [place] % (Auto) 9.2 % (0.0-7.3) H 03/31/17 04:18 Eos % (Auto) 0.6 % (0.0-4.3) 03/31/17 04:18 Baso % (Auto) 0.3 % (0.0-1.8) 03/31/17 04:18 Lymph # 0.9 K/mm3 (1.2-5.4) L 03/31/17 04:18 [place] # 1.1 K/mm3 (0.0-0.8) H 03/31/17 04:18 Eos # 0.1 K/mm3 (0.0-0.4) 03/31/17 04:18 Baso # 0.0 K/mm3 (0.0-0.1) 03/31/17 04:18 Seg Neutrophils % 82.4 % (40.0-70.0) H 03/31/17 04:18 Seg Neutrophils # 9.6 K/mm3 (1.8-7.7) H 03/31/17 04:18 PT 13.2 Sec. (12.2-14.9) 03/29/17 13:50 INR 1.01 (0.87-1.13) 03/29/17 13:50 VBG pH 7.389 (7.320-7.420) 03/29/17 20:10 Sodium 134 mmol/L (137-145) L 03/31/17 04:18 Potassium 4.2 mmol/L (3.6-5.0) 03/31/17 04:18 Chloride 96.3 mmol/L (98-107) L 03/31/17 04:18 Carbon Dioxide 25 mmol/L (22-30) 03/31/17 04:18 Anion Gap 17 mmol/L 03/31/17 04:18 BUN 10 mg/dL (9-20) 03/31/17 04:18 Creatinine 0.7 mg/dL (0.8-1.5) L 03/31/17 04:18 Estimated GFR > 60 ml/min 03/31/17 04:18 BUN/Creatinine Ratio 14.28 % 03/31/17 04:18 Glucose 224 mg/dL (75-100) H 03/31/17 04:18 POC Glucose 172 (70-105) H 04/02/17 11:48 Lactic Acid 1.70 mmol/L (0.7-2.0) 03/29/17 20:10 Calcium 8.4 mg/dL (8.4-10.2) 03/31/17 04:18 Total Bilirubin 0.60 mg/dL (0.1-1.2) 03/29/17 13:50 AST 18 units/L (5-40) 03/29/17 13:50 ALT 48 units/L (7-56) 03/29/17 13:50 Alkaline Phosphatase 99 units/L (35-129) 03/29/17 13:50 Total Creatine Kinase 85 units/L (55-170) 03/29/17 13:50 Total Protein 7.8 g/dL (6.3-8.2) 03/29/17 13:50 Albumin 4.2 g/dL (3.9-5) 03/29/17 13:50 Albumin/Globulin Ratio 1.2 % 03/29/17 13:50
--- NOTE | 2017-04-02 14:19 | Procedure Note ---
Date of procedure: 04/02/17 Pre-op diagnosis: infected left forefoot Post-op diagnosis: same Procedure: Incision and drainage left foot Indications 46-year-old male with a history of type 2 diabetes who developed a nonhealing wound to the plantar surface of his left forefoot Procedure The patient was brought to the OR and placed on the OR table in the supine position, following induction and intubation the patient's left lower extremity was prepped and draped in the usual sterile manner. A timeout procedure was done to identify the proper operative site, an incision was made along the plantar surface from the open draining area approximately to the tarsometatarsal joints there was a large return of foul smelling fluid which was sent for culture and sensitivity studies care was taken to release any pockets of residual abscesses from the plantar surface, next the wound copiously irrigated and packed open with iodoform gauge packing. routine post op dressing applied. extubated and taken to PACU in stable condition. Anesthesia: GETA Surgeon: LAURA UMANA Estimated blood loss: minimal Pathology: list (culture were sent for identification and sensitivity studies) Specimen disposition: to lab Condition: stable Disposition: PACU
--- NOTE | 2017-04-02 14:44 | Post Anesthesia Evaluation ---
- Post Anesthesia Evaluation Patient Participated: No (resting comfortably) Airway Patent: Yes Stable Respiratory Function: Yes Nausea/Vomiting: No Temp > 96.8F: Yes Pain Manageable: Yes Adequeate Hydration: Yes Anesthesia Complications: No Block Receding Appropriately: Not Applicable Patient on Ventilator: No
[2017-04-02] MEDS ORDERED: SODIUM CHLORIDE FLUSH SYRINGE 10 ML IV NR (15:00)
[2017-04-02] MEDS: LOVENOX SUB-Q SCH (18:13)
[2017-04-02] MEDS: LEVAQUIN PO SCH (18:13)
[2017-04-03] MEDS: MORPHINE IV PRN ×4 (03:30→23:21)
[2017-04-03] MEDS: NACL 0.9% 1000 ML 1,000 ML IV SCH ×2 (03:33→13:31)
--- NOTE | 2017-04-03 07:46 | Progress Note ---
Assessment and Plan Assessment and plan: 46-year-old male with a past medical history of uncontrolled diabetes who stopped taking his diabetes medications and insulins 3 months prior to presentation. He was concerned that diabetes medications would make him blind, over the course of these 3 months he had worsening swelling and pain and erythema in his left foot, symptoms worsened prompting him to go to be seen in the clinic within sent him to our emergency room for further care. He was found to have left diabetic foot infection, did not meet sepsis criteria. An uncontrolled diabetes with hyperglycemia 1. Diabetic foot infection/cellulitis Continue broad-spectrum antibiotics, wound cultures reviewed, prelim growing gram negative rods, ID input appreciated s/p debridement and I&D 04/02/[address] Strong (orthopedic surgery wound culture from 03/30 is reviewed growing Enterobacter cloaca and Klebsiella oxytoca, and beta hemolytic strep, sensitivities reviewed it is sensitive to Levaquin., Continue Levaquin Awaiting intraop cultures PT for whirlpool rx 2. Uncontrolled diabetes with hyperglycemia continue oral medications and SSI, Diabetic diet, accuchecks 3. Left diabetic foot ulcer , present on admission Wound care 4. Hyponatremia Most likely due to hyperglycemia,improved with insulins History Interval history: He is complaining of pain in his left third, pain is about 5 out of 10, exacerbated by moving the foot, pain is dull, pain does not radiate. he denies fever overnight Hospitalist Physical - Physical exam Narrative exam: General: Patient appears well in no distress HEENT: MMM, EOMI cardiac: S1-S2 heard lungs: clear to auscultation, abdomen: soft, nontender, nondistended bowel sounds positive extremities: Left foot in dressing, dressing was not removed Skin: no rash or lesion Neuro: no focal deficit Psych: appropriate behavior and mood, cognition intact - Constitutional Vitals: Temp Pulse Resp BP Pulse Ox 99.9 F H 81 20 115/75 96 04/02/17 23:56 04/02/17 23:56 04/03/17 03:30 04/02/17 23:56 04/02/17 23:56 General appearance: Present: no acute distress Results - Labs CBC & Chem 7: 03/31/17 04:18 03/31/17 04:18 Labs: Laboratory Last Values WBC 11.6 K/mm3 (4.5-11.0) H 03/31/17 04:18 RBC 4.57 M/mm3 (3.65-5.03) 03/31/17 04:18 Hgb 13.3 gm/dl (11.8-15.2) 03/31/17 04:18 Hct 39.7 % (35.5-45.6) D 03/31/17 04:18 MCV 87 fl (84-94) 03/31/17 04:18 MCH 29 pg (28-32) 03/31/17 04:18 MCHC 34 % (32-34) 03/31/17 04:18 RDW 13.5 % (13.2-15.2) 03/31/17 04:18 Plt Count 184 K/mm3 (140-440) 03/31/17 04:18 Lymph % (Auto) 7.5 % (13.4-35.0) L 03/31/17 04:18 [place] % (Auto) 9.2 % (0.0-7.3) H 03/31/17 04:18 Eos % (Auto) 0.6 % (0.0-4.3) 03/31/17 04:18 Baso % (Auto) 0.3 % (0.0-1.8) 03/31/17 04:18 Lymph # 0.9 K/mm3 (1.2-5.4) L 03/31/17 04:18 [place] # 1.1 K/mm3 (0.0-0.8) H 03/31/17 04:18 Eos # 0.1 K/mm3 (0.0-0.4) 03/31/17 04:18 Baso # 0.0 K/mm3 (0.0-0.1) 03/31/17 04:18 Seg Neutrophils % 82.4 % (40.0-70.0) H 03/31/17 04:18 Seg Neutrophils # 9.6 K/mm3 (1.8-7.7) H 03/31/17 04:18 PT 13.2 Sec. (12.2-14.9) 03/29/17 13:50 INR 1.01 (0.87-1.13) 03/29/17 13:50 VBG pH 7.389 (7.320-7.420) 03/29/17 20:10 Sodium 134 mmol/L (137-145) L 03/31/17 04:18 Potassium 4.2 mmol/L (3.6-5.0) 03/31/17 04:18 Chloride 96.3 mmol/L (98-107) L 03/31/17 04:18 Carbon Dioxide 25 mmol/L (22-30) 03/31/17 04:18 Anion Gap 17 mmol/L 03/31/17 04:18 BUN 10 mg/dL (9-20) 03/31/17 04:18 Creatinine 0.7 mg/dL (0.8-1.5) L 03/31/17 04:18 Estimated GFR > 60 ml/min 03/31/17 04:18 BUN/Creatinine Ratio 14.28 % 03/31/17 04:18 Glucose 224 mg/dL (75-100) H 03/31/17 04:18 POC Glucose 133 (70-105) H 04/03/17 06:18 Lactic Acid 1.70 mmol/L (0.7-2.0) 03/29/17 20:10 Calcium 8.4 mg/dL (8.4-10.2) 03/31/17 04:18 Total Bilirubin 0.60 mg/dL (0.1-1.2) 03/29/17 13:50 AST 18 units/L (5-40) 03/29/17 13:50 ALT 48 units/L (7-56) 03/29/17 13:50 Alkaline Phosphatase 99 units/L (35-129) 03/29/17 13:50 Total Creatine Kinase 85 units/L (55-170) 03/29/17 13:50 Total Protein 7.8 g/dL (6.3-8.2) 03/29/17 13:50 Albumin 4.2 g/dL (3.9-5) 03/29/17 13:50 Albumin/Globulin Ratio 1.2 % 03/29/17 13:50
[2017-04-03] MEDS: NOVOLOG SUB-Q SCH ×4 (07:58→21:57)
[2017-04-03] MEDS: LOVENOX SUB-Q SCH (09:28)
[2017-04-03] MEDS: GLUCOTROL PO SCH ×2 (09:29→16:44)
[2017-04-03] MEDS: GLUCOPHAGE PO SCH ×2 (09:29→16:44)
[2017-04-03] MEDS: LEVAQUIN PO SCH (09:29)
--- NOTE | 2017-04-03 11:18 | Progress Note ---
Assessment and Plan continue IVAB , consult PT for whirlpool treatments Subjective Date of service: 04/03/17 Principal diagnosis: Left Foot Abscess Interval history: no c/o's noted, got up with PT earlier Objective Vital signs: Vital Signs - 12hr 04/02/17 04/03/17 04/03/17 23:56 03:30 07:00 Temperature 99.9 F H 99.0 F Pulse Rate [ 81 68 Right Radial] Respiratory 20 20 20 Rate Blood Pressure 115/75 104/73 [Right Radial Artery] O2 Sat by Pulse 96 97 Oximetry - Labs CBC & BMP: 03/31/17 04:18 03/31/17 04:18 Labs: Abnormal lab results 04/02/17 04/02/17 04/02/17 Range/Units 11:48 14:01 16:51 POC Glucose 172 H 155 H 189 H (70-105) 04/03/17 Range/Units 06:18 POC Glucose 133 H (70-105)
--- NOTE | 2017-04-03 12:16 | Progress Note ---
Assessment and Plan - Patient Problems (1) Diabetic foot ulcer Current Visit: Yes Status: Acute Qualifiers: Diabetic foot ulcer location: midfoot Diabetes mellitus type: type 1 Laterality: left Non-pressure ulcer stage: unspecified non-pressure ulcer stage Qualified Code(s): E10.621 - Type 1 diabetes mellitus with foot ulcer; L97.429 - Non-pressure chronic ulcer of left heel and midfoot with unspecified severity Plan to address problem: 1. Patient is s/p left foot wound debridement. 2. Blood sugars remain stable. (2) Abscess of left foot Current Visit: Yes Status: Acute Plan to address problem: 1. No new specimen sent for culture. Would continue Levaquin 750mg PO daily with last dose given no sooner than April 16, 2017. 2. Patient's foot still has the appearance of unresolved subcutaneous collections. Recommend close follow-up after discharge to ensure that infection is appropriately resolving. 3. Patient can follow-up at [facility] or with [facility], as needed. He should call [phone] to schedule an appointment with me. Subjective Date of service: 04/03/17 Principal diagnosis: Left Foot Abscess Interval history: Patient underwent wash-out and debridement of left foot wound yesterday. Remains afebrile. Has no new complaints. Objective - Constitutional Vitals: Vital Signs Temp Pulse Resp BP Pulse Ox 99.0 F 68 20 104/73 97 04/03/17 07:00 04/03/17 07:00 04/03/17 07:00 04/03/17 07:00 04/03/17 07:00 Temperature -Last 24 Hours Temperature 99.0 F Temperature 99.9 F Temperature 98.6 F Temperature 99.1 F Temperature 99.1 F Temperature 98.5 F Temperature 97.8 F Temperature 97.9 F General appearance: Present: no acute distress, other (non-toxic appearance) - Respiratory Respiratory effort: normal - Cardiovascular Rhythm: regular Extremity abnormal: edema, erythema, other (left plantar foot is s/p apparent expaned incision, now packed, though still with signicificant surrounding fluctuance) - Integumentary Integumentary: no rash - Labs CBC & Chem 7: 03/31/17 04:18 03/31/17 04:18 Labs: Abnormal lab results 04/02/17 04/02/17 04/03/17 Range/Units 14:01 16:51 06:18 POC Glucose 155 H 189 H 133 H (70-105) Microbiology 03/29/17 20:43 Peripheral/Venous Blood Culture - Preliminary NO GROWTH AFTER 4 DAYS 03/29/17 20:10 Peripheral/Venous Blood Culture - Preliminary NO GROWTH AFTER 4 DAYS 03/30/17 05:00 Foot - Left Wound Culture - Final Enterobacter Cloacae Klebsiella Oxytoca Beta Hemolytic Strep Group F Active Medications Acetaminophen (Tylenol) 650 mg PO Q4H PRN PRN Reason: Pain MILD(1-3)/Fever >100.5/GASTELUM Last Admin: 03/30/17 15:22 Dose: 650 mg Bisacodyl (Dulcolax) 10 mg OR QDAY PRN PRN Reason: Constipation unrelieved by MOM Dextrose (D50w (25gm)) 50 ml IV PRN PRN PRN Reason: Hypoglycemia Enoxaparin Sodium (Lovenox) 40 mg SUB-Q QDAY [facility] Last Admin: 04/03/17 09:28 Dose: 40 mg Glipizide (Glucotrol) 10 mg PO BIDDIAB [facility] Last Admin: 04/03/17 09:29 Dose: 10 mg Hydromorphone HCl (Dilaudid) 0.25 mg IV Q10MIN PRN PRN Reason: Pain, Moderate (4-6) Stop: 04/05/17 16:00 Sodium Chloride (Nacl 0.9% 1000 Ml) 1,000 mls @ 100 mls/hr IV DIRECT [facility] Last Admin: 04/03/17 03:33 Dose: 100 mls/hr Insulin Aspart (Novolog) 0 units SUB-Q ACHS [facility] PRN Reason: Protocol Last Admin: 04/03/17 07:58 Dose: Not Given Levofloxacin (Levaquin) 750 mg PO Q24HR [facility] Last Admin: 04/03/17 09:29 Dose: 750 mg Magnesium Hydroxide (Milk Of Magnesia) 30 ml PO Q4H PRN PRN Reason: Constipation Metformin HCl (Glucophage) 1,000 mg PO BIDDIAB [facility] Last Admin: 04/03/17 09:29 Dose: 1,000 mg Morphine Sulfate (Morphine) 2 mg IV Q4H PRN PRN Reason: Pain, Moderate (4-6) Last Admin: 04/03/17 10:20 Dose: 2 mg Ondansetron HCl (Zofran) 4 mg IV Q8H PRN PRN Reason: N/V unrelieved by You
[2017-04-04] MEDS: NACL 0.9% 1000 ML 1,000 ML IV SCH ×2 (07:15→15:58)
--- NOTE | 2017-04-04 07:30 | Discharge Summary ---
Providers - Providers Date of Admission: 03/30/17 04:04 Attending physician: LUCAS ROSARIO MD 03/30/17 07:44 Consult to Physician [CONS] Routine Consulting Provider: RICK BONILLA Reason For Exam: left foot diabetic infection Place consult to:: DR. BONILLA Notified:: DR. BONILLA Phone number called:: [phone] Was contact made?: Yes If yes, spoke with:: DR. BONILLA Time called:: 09:41 Comment:: JAC NOTIFIED 03/30/17 08:00 Consult to Wound/ET Nurse [CONS] Routine Reason For Exam: wound eval, L foot 04/01/17 10:23 Consult to Physician [CONS] Routine Consulting Provider: LAURA STRONG Reason For Exam: left foot abscess Place consult to:: DR. STRONG Notified:: OFFICE Phone number called:: [phone] Was contact made?: Yes If yes, spoke with:: LAVINIA Esposito called:: 11:13 Comment:: KIYA NOTIFIED 04/02/17 14:09 Physical Therapy Evaluation and Treat [CONS] Routine Comment: Reason For Exam: gait training Weight bearing status?: Partial wt bearing Assistive devices?: Yes If so list: Walker 04/03/17 11:15 Physical Therapy For Whirlpool Treatment [CONS] Routine Reason For Exam: s/p debridement and irrigation left foot abscess Primary care physician: ANIMAL ASSISTED THERAPIST Hospitalization Condition: Stable Hospital course: 46-year-old male with a past medical history of uncontrolled diabetes who stopped taking his diabetes medications and insulins 3 months prior to presentation. He was concerned that diabetes medications would make him blind, over the course of these 3 months he had worsening swelling and pain and erythema in his left foot, symptoms worsened prompting him to go to be seen in the clinic within sent him to our emergency room for further care. He was found to have left diabetic foot infection, did not meet sepsis criteria. An uncontrolled diabetes with hyperglycemia 1. Diabetic foot infection/cellulitis Continue broad-spectrum antibiotics, wound cultures reviewed, prelim growing gram negative rods, ID input appreciated s/p debridement and I&D 04/02/[address] Strong (orthopedic surgery wound culture from 03/30 is reviewed growing Enterobacter cloaca and Klebsiella oxytoca, and beta hemolytic strep, sensitivities reviewed it is sensitive to Levaquin., Continue Levaquin Awaiting intraop cultures PT for whirlpool rx 2. Uncontrolled diabetes with hyperglycemia continue oral medications and SSI, Diabetic diet, accuchecks 3. Left diabetic foot ulcer , present on admission Wound care 4. Hyponatremia Most likely due to hyperglycemia,improved with insulins Disposition: DC/TX HOME UNDER HOME [facility] Time spent for discharge: 35 minutes Core Measure Documentation - Palliative Care Palliative Care/ Comfort Measures: Not Applicable - Core Measures Any of the following diagnoses?: none Exam - Physical Exam Narrative exam: General: Patient appears well in no distress HEENT: MMM, EOMI cardiac: S1-S2 heard lungs: clear to auscultation, abdomen: soft, nontender, nondistended bowel sounds positive extremities: Left foot in dressing, dressing was not removed Skin: no rash or lesion Neuro: no focal deficit Psych: appropriate behavior and mood, cognition intact - Constitutional Vitals: Temp Pulse Resp BP Pulse Ox 98.6 F 66 18 130/87 98 04/04/17 00:00 04/04/17 00:00 04/04/17 00:00 04/04/17 00:00 04/04/17 00:00 Plan Additional Instructions: Please call [phone] to schedule an appointment Infectious Disease, Dr Bonilla. Please fup with Dr Strong for post operative evaluation on March; Please call his office to confirm the appointment Follow up with: [facility] [Outside] - 7 Days PRIMARY MD ROSARIO [Primary Care Provider] - 3-5 Days RICK BONILLA MD [Staff Physician] - 7 Days LAURA STRONG MD [Staff Physician] - 7 Days Prescriptions: Clindamycin [Clindamycin CAP] 300 mg PO Q8H 5 Days glipiZIDE [Glucotrol] 10 mg PO BIDDIAB #60 tablet Levofloxacin [Levaquin TAB] 750 mg PO Q24HR #10 tablet Metformin HCl [Glucophage] 1,000 mg PO BID #60 tablet oxyCODONE /ACETAMINOPHEN [Percocet 5/325] 1 tab PO Q6HR PRN #30 tablet PRN Reason: Pain Other Discharge Orders: [facility] (Amb) Location: Determined By Patient
[2017-04-04 07:43] LABS: Basophils % (Auto) 0.5 % (0.0-1.8); Eosinophils % (Auto) 4.6 % (0.0-4.3); Hematocrit 39.5 % (35.5-45.6); Hemoglobin 12.9 gm/dl (11.8-15.2); Mean Corpuscular HGB Conc 33 % (32-34); Mean Corpuscular Hemoglobin 29 pg (28-32); Mean Corpuscular Volume 89 fl (84-94); Platelet Count 248 K/mm3 (140-440); Red Blood Count 4.43 M/mm3 (3.65-5.03); Red Cell Distribution Width 13.2 % (13.2-15.2); White Blood Count 7.9 K/mm3 (4.5-11.0)
[2017-04-04 07:55] LABS: Anion Gap 18 mmol/L; BUN/Creatinine Ratio 11.42; Blood Urea Nitrogen 8 mg/dL (9-20); Calcium 8.7 mg/dL (8.4-10.2); Carbon Dioxide 24 mmol/L (22-30); Chloride 101.2 mmol/L (98-107); Glucose 181 mg/dL (75-100); Potassium 4.5 mmol/L (3.6-5.0); Sodium 139 mmol/L (137-145)
[2017-04-04] MEDS: NOVOLOG SUB-Q SCH ×3 (07:57→17:00)
[2017-04-04] MEDS: GLUCOPHAGE PO SCH ×2 (07:58→17:00)
[2017-04-04] MEDS: GLUCOTROL PO SCH ×2 (07:58→17:07)
[2017-04-04] MEDS: MORPHINE IV PRN ×3 (07:58→23:34)
[2017-04-04] MEDS: LOVENOX SUB-Q SCH (10:16)
[2017-04-04] MEDS: LEVAQUIN PO SCH (10:16)
--- NOTE | 2017-04-04 11:16 | Progress Note ---
Assessment and Plan - Patient Problems (1) Diabetic foot ulcer Current Visit: Yes Status: Acute Qualifiers: Diabetic foot ulcer location: midfoot Diabetes mellitus type: type 1 Laterality: left Non-pressure ulcer stage: unspecified non-pressure ulcer stage Qualified Code(s): E10.621 - Type 1 diabetes mellitus with foot ulcer; L97.429 - Non-pressure chronic ulcer of left heel and midfoot with unspecified severity Plan to address problem: Patient should follow-up with PCP and wound care as noted per primary MD. (2) Abscess of left foot Current Visit: Yes Status: Acute Plan to address problem: 1. I provided my office contact information and advised the patient to call to make an appointment with me THIS WEEK. 2. Repeat cultures of drainage with apparent growth of Strep. Final pending. 3. Continue with high-dose Levaquin (no Cipro) 750mg PO daily for 14 days as planned with the addition of Clindamycin 300mg PO q8h for 3-5 days. I will put in ambulatory order. Subjective Date of service: 04/04/17 Principal diagnosis: Left Foot Abscess Interval history: For discharge to home today. No new issues. Remains afebrile. Objective - Constitutional Vitals: Vital Signs Temp Pulse Resp BP Pulse Ox 98.4 F 60 18 113/78 98 04/04/17 08:09 04/04/17 08:09 04/04/17 08:09 04/04/17 08:09 04/04/17 00:00 Temperature -Last 24 Hours Temperature 98.4 F Temperature 98.6 F Temperature 97.9 F General appearance: Present: no acute distress - Respiratory Respiratory effort: normal - Cardiovascular Rhythm: regular Heart Sounds: Present: S1 & S2 Extremity abnormal: other (left foot little changed from yesterday's exam; mild erythema and edema along plantar surface) - Integumentary Integumentary: no rash - Labs CBC & Chem 7: 04/04/17 06:38 04/04/17 06:38 Labs: Abnormal lab results 04/03/17 04/03/17 04/04/17 Range/Units 12:17 21:26 05:48 Lymph % (Auto) (13.4-35.0) % [place] % (Auto) (0.0-7.3) % Eos % (Auto) (0.0-4.3) % Lymph # (1.2-5.4) K/mm3 [place] # (0.0-0.8) K/mm3 Seg Neutrophils % (40.0-70.0) % BUN (9-20) mg/dL Creatinine (0.8-1.5) mg/dL Glucose (75-100) mg/dL POC Glucose 166 H 143 H 160 H (70-105) 04/04/17 04/04/17 Range/Units 06:38 06:38 Lymph % (Auto) 10.1 L (13.4-35.0) % [place] % (Auto) 12.5 H (0.0-7.3) % Eos % (Auto) 4.6 H (0.0-4.3) % Lymph # 0.8 L (1.2-5.4) K/mm3 [place] # 1.0 H (0.0-0.8) K/mm3 Seg Neutrophils % 72.3 H (40.0-70.0) % BUN 8 L (9-20) mg/dL Creatinine 0.7 L (0.8-1.5) mg/dL Glucose 181 H (75-100) mg/dL POC Glucose (70-105) Microbiology 04/02/17 Unknown Drainage Surgical Culture - Preliminary 03/29/17 20:43 Peripheral/Venous Blood Culture - Final NO GROWTH AFTER 5 DAYS 03/29/17 20:10 Peripheral/Venous Blood Culture - Final NO GROWTH AFTER 5 DAYS 03/30/17 05:00 Foot - Left Wound Culture - Final Enterobacter Cloacae Klebsiella Oxytoca Beta Hemolytic Strep Group F Active Medications Acetaminophen (Tylenol) 650 mg PO Q4H PRN PRN Reason: Pain MILD(1-3)/Fever >100.5/GASTELUM Last Admin: 03/30/17 15:22 Dose: 650 mg Bisacodyl (Dulcolax) 10 mg DE QDAY PRN PRN Reason: Constipation unrelieved by MOM Dextrose (D50w (25gm)) 50 ml IV PRN PRN PRN Reason: Hypoglycemia Enoxaparin Sodium (Lovenox) 40 mg SUB-Q QDAY [facility] Last Admin: 04/04/17 10:16 Dose: 40 mg Glipizide (Glucotrol) 10 mg PO BIDDIAB [facility] Last Admin: 04/04/17 07:58 Dose: 10 mg Hydromorphone HCl (Dilaudid) 0.25 mg IV Q10MIN PRN PRN Reason: Pain, Moderate (4-6) Stop: 04/05/17 16:00 Sodium Chloride (Nacl 0.9% 1000 Ml) 1,000 mls @ 100 mls/hr IV DIRECT [facility] Last Admin: 04/04/17 07:15 Dose: 100 mls/hr Insulin Aspart (Novolog) 0 units SUB-Q ACHS [facility] PRN Reason: Protocol Last Admin: 04/04/17 07:57 Dose: 3 units Levofloxacin (Levaquin) 750 mg PO Q24HR [facility] Last Admin: 04/04/17 10:16 Dose: 750 mg Magnesium Hydroxide (Milk Of Magnesia) 30 ml PO Q4H PRN PRN Reason: Constipation Metformin HCl (Glucophage) 1,000 mg PO BIDDIAB [facility] Last Admin: 04/04/17 07:58 Dose: 1,000 mg Morphine Sulfate (Morphine) 2 mg IV Q4H PRN PRN Reason: Pain, Moderate (4-6) Last Admin: 04/04/17 07:58 Dose: 2 mg Ondansetron HCl (Zofran) 4 mg IV Q8H PRN PRN Reason: N/V unrelieved by You
--- NOTE | 2017-04-04 14:24 | Progress Note ---
Assessment and Plan Assessment and plan: 46-year-old male with a past medical history of uncontrolled diabetes who stopped taking his diabetes medications and insulins 3 months prior to presentation. He was concerned that diabetes medications would make him blind, over the course of these 3 months he had worsening swelling and pain and erythema in his left foot, symptoms worsened prompting him to go to be seen in the clinic within sent him to our emergency room for further care. He was found to have left diabetic foot infection, did not meet sepsis criteria. An uncontrolled diabetes with hyperglycemia 1. Diabetic foot infection/cellulitis Continue broad-spectrum antibiotics, wound cultures reviewed, prelim growing gram negative rods, ID input appreciated s/p debridement and I&D 04/02/[address] Strong (orthopedic surgery wound culture from 03/30 is reviewed growing Enterobacter cloaca and Klebsiella oxytoca, and beta hemolytic strep, sensitivities reviewed it is sensitive to Levaquin., Continue Levaquin, clinda added Awaiting intraop cultures PT for [facility] rx 2. Uncontrolled diabetes with hyperglycemia continue oral medications and SSI, Diabetic diet, accuchecks 3. Left diabetic foot ulcer , present on admission Wound care 4. Hyponatremia Most likely due to hyperglycemia,improved with insulins 5. Ambulatory Dysfunction needs rolling walker and another PT session to familiarize with device; important as he is at risk for falls Tentative DC home tomorrow with home pt and wound care To fup with Dr Strong of ortho sx on Wednesday to fup with Dr Bonilla within 3 days of dc History Interval history: He is complaining of pain in his left third, pain is about 5 out of 10, exacerbated by moving the foot, pain is dull, pain does not radiate. he denies fever overnight Hospitalist Physical - Physical exam Narrative exam: General: Patient appears well in no distress HEENT: MMM, EOMI cardiac: S1-S2 heard lungs: clear to auscultation, abdomen: soft, nontender, nondistended bowel sounds positive extremities: Left foot in dressing, dressing was not removed Skin: no rash or lesion Neuro: no focal deficit Psych: appropriate behavior and mood, cognition intact - Constitutional Vitals: Temp Pulse Resp BP Pulse Ox 98.4 F 60 18 113/78 98 04/04/17 08:09 04/04/17 08:09 04/04/17 08:09 04/04/17 08:09 04/04/17 00:00 General appearance: Present: no acute distress Results - Labs CBC & Chem 7: 04/04/17 06:38 04/04/17 06:38 Labs: Laboratory Last Values WBC 7.9 K/mm3 (4.5-11.0) 04/04/17 06:38 RBC 4.43 M/mm3 (3.65-5.03) 04/04/17 06:38 Hgb 12.9 gm/dl (11.8-15.2) 04/04/17 06:38 Hct 39.5 % (35.5-45.6) 04/04/17 06:38 MCV 89 fl (84-94) 04/04/17 06:38 MCH 29 pg (28-32) 04/04/17 06:38 MCHC 33 % (32-34) 04/04/17 06:38 RDW 13.2 % (13.2-15.2) 04/04/17 06:38 Plt Count 248 K/mm3 (140-440) 04/04/17 06:38 Lymph % (Auto) 10.1 % (13.4-35.0) L 04/04/17 06:38 [place] % (Auto) 12.5 % (0.0-7.3) H 04/04/17 06:38 Eos % (Auto) 4.6 % (0.0-4.3) H 04/04/17 06:38 Baso % (Auto) 0.5 % (0.0-1.8) 04/04/17 06:38 Lymph # 0.8 K/mm3 (1.2-5.4) L 04/04/17 06:38 [place] # 1.0 K/mm3 (0.0-0.8) H 04/04/17 06:38 Eos # 0.4 K/mm3 (0.0-0.4) 04/04/17 06:38 Baso # 0.0 K/mm3 (0.0-0.1) 04/04/17 06:38 Seg Neutrophils % 72.3 % (40.0-70.0) H 04/04/17 06:38 Seg Neutrophils # 5.7 K/mm3 (1.8-7.7) 04/04/17 06:38 PT 13.2 Sec. (12.2-14.9) 03/29/17 13:50 INR 1.01 (0.87-1.13) 03/29/17 13:50 VBG pH 7.389 (7.320-7.420) 03/29/17 20:10 Sodium 139 mmol/L (137-145) 04/04/17 06:38 Potassium 4.5 mmol/L (3.6-5.0) 04/04/17 06:38 Chloride 101.2 mmol/L (98-107) 04/04/17 06:38 Carbon Dioxide 24 mmol/L (22-30) 04/04/17 06:38 Anion Gap 18 mmol/L 04/04/17 06:38 BUN 8 mg/dL (9-20) L 04/04/17 06:38 Creatinine 0.7 mg/dL (0.8-1.5) L 04/04/17 06:38 Estimated GFR > 60 ml/min 04/04/17 06:38 BUN/Creatinine Ratio 11.42 % 04/04/17 06:38 Glucose 181 mg/dL (75-100) H 04/04/17 06:38 POC Glucose 70 (70-105) 04/04/17 11:15 Lactic Acid 1.70 mmol/L (0.7-2.0) 03/29/17 20:10 Calcium 8.7 mg/dL (8.4-10.2) 04/04/17 06:38 Total Bilirubin 0.60 mg/dL (0.1-1.2) 03/29/17 13:50 AST 18 units/L (5-40) 03/29/17 13:50 ALT 48 units/L (7-56) 03/29/17 13:50 Alkaline Phosphatase 99 units/L (35-129) 03/29/17 13:50 Total Creatine Kinase 85 units/L (55-170) 03/29/17 13:50 Total Protein 7.8 g/dL (6.3-8.2) 03/29/17 13:50 Albumin 4.2 g/dL (3.9-5) 03/29/17 13:50 Albumin/Globulin Ratio 1.2 % 03/29/17 13:50
[2017-04-04] MEDS: CLEOCIN 300 MG/50 mL 300 MG/50 ML BAG IV SCH ×2 (15:58→23:34)
[2017-04-05] MEDS: MORPHINE IV PRN (06:34)
[2017-04-05] MEDS: CLEOCIN 300 MG/50 mL 300 MG/50 ML BAG IV SCH ×2 (06:36→14:49)
[2017-04-05] MEDS: NACL 0.9% 1000 ML 1,000 ML IV SCH (08:32)
[2017-04-05] MEDS: NOVOLOG SUB-Q SCH ×3 (08:32→13:20)
[2017-04-05] MEDS: GLUCOTROL PO SCH (08:32)
[2017-04-05] MEDS: GLUCOPHAGE PO SCH (08:32)
[2017-04-05] MEDS: LOVENOX SUB-Q SCH (10:11)
[2017-04-05] MEDS: LEVAQUIN PO SCH (10:11)
--- NOTE | 2017-04-05 11:15 | Progress Note ---
Assessment and Plan s/p I&D left foot abscess will need to soak foot in saline solution once a day for next 2 wks return to office for f/u in 5 days continue antibiotics for at least 2-4 until wound heals Subjective Date of service: 04/05/17 Principal diagnosis: Left Foot Abscess Interval history: no c/o's noted, scheduled for dc today Objective Vital signs: Vital Signs - 12hr 04/05/17 04/05/17 04/05/17 07:04 08:24 08:36 Temperature 98.7 F Pulse Rate [ 53 L Right Radial] Respiratory 16 18 16 Rate Blood Pressure 113/77 [Right Radial Artery] O2 Sat by Pulse 96 Oximetry Narrative Exam: left foot - dressing and packing removed this am, minimal drainage noted, redressed for discharge to home - Labs CBC & BMP: 04/04/17 06:38 04/04/17 06:38 Labs: Abnormal lab results 04/04/17 04/04/17 04/05/17 Range/Units 16:08 20:47 06:34 POC Glucose 124 H 165 H 188 H (70-105)
[2017-04-05 14:33] VITALS: BP 110/71
== END 2017-04-05 16:10 | disposition home health service (06) | DRG 638 ==
LOC: ED 12:38 → 3A 03-30 04:04
PROVIDERS: ADMIT Internal Medicine; ATTEND Internal Medicine
PROC: 0Y9N0ZZ Drainage of Left Foot, Open Approach (ICD-10-PCS; principal; 2017-04-02)
DX: E11.621 Type 2 diabetes mellitus with foot ulcer (principal); L97.429 Non-pressure chronic ulcer of left heel and midfoot with unspecified severity; L03.116 Cellulitis of left lower limb; E87.1 Hypo-osmolality and hyponatremia; E11.65 Type 2 diabetes mellitus with hyperglycemia; Z79.84 Long term (current) use of oral hypoglycemic drugs; Z91.14 Patient's other noncompliance with medication regimen; Z79.4 Long term (current) use of insulin; Z83.3 Family history of diabetes mellitus
CPT/HCPCS: 36415; 80048; 80053; 82140; 82550; 82805; 82962; 85025; 85610; 87040; 87075; 87076; 87116; 87186; 96365; 96366; J1170; J1650; J1815; J2270; J2405; J2543; J2704; J3370; J7030; Q9967

== ENCOUNTER 2017-04-12 17:53 | Inpatient (IN) | payer OTHER ==
--- NOTE | 2017-04-12 19:11 | Emergency Department Report ---
Entered by RELL ANDERSON, acting as scribe for DICK SANTOS PA. Chief Complaint: Extremity Injury, Lower Stated Complaint: ULCER ON BOTTOM OF LEFT FOOT Time Seen by Provider: 04/12/17 18:28 - HPI History of Present Illness: Pt c/o an ulcer to his left foot. Pt states he was recently admitted for his ulcer on left foot getting infected. 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 Notes left foot pain and bleeding for ulcer site. PMHx of IDDM Notes compliancy with antibiotics. - ROS Review of Systems: All systems are negative unless stated in HPI above. - Exam Vital Signs: Vital Signs 04/12/17 18:08 Temperature 98.3 F Pulse Rate 88 Respiratory 16 Rate Blood Pressure 111/74 O2 Sat by Pulse 100 Oximetry Physical Exam: General: 46 y/o male that is well nourished, well developed, nontoxic in appearance, and in no acute distress Skin: Warm and dry. Patient has a ulcer on plantar left foot. no bleeding present bilateral dorsalis pedis pulses present. MSE screening note: Focused history and physical exam performed. Due to findings the following was ordered: ED Medical Decision Making - Radiology Data Radiology results: pending - Medical Decision Making Patient was seen by provider in triage area. ED Disposition for MSE Condition: Stable This documentation as recorded by the scribe,RELL NADERSON,accurately reflects the service I personally performed and the decisions made by ut,DICK SANTOS PA.
[2017-04-12 20:26] LABS: Basophils % (Auto) 0.5 % (0.0-1.8); Eosinophils % (Auto) 1.1 % (0.0-4.3); Hematocrit 45.8 % (35.5-45.6); Hemoglobin 15.2 gm/dl (11.8-15.2); Mean Corpuscular HGB Conc 33 % (32-34); Mean Corpuscular Hemoglobin 30 pg (28-32); Mean Corpuscular Volume 89 fl (84-94); Platelet Count 309 K/mm3 (140-440); Red Blood Count 5.14 M/mm3 (3.65-5.03); Red Cell Distribution Width 13.5 % (13.2-15.2); White Blood Count 10.8 K/mm3 (4.5-11.0)
[2017-04-12 20:52] LABS: Anion Gap 18 mmol/L; Blood Urea Nitrogen 18 mg/dL (9-20); Calcium 9.7 mg/dL (8.4-10.2); Carbon Dioxide 27 mmol/L (22-30); Chloride 98.3 mmol/L (98-107); Glucose 181 mg/dL (75-100); Potassium 4.6 mmol/L (3.6-5.0); Sodium 139 mmol/L (137-145)
[2017-04-13] MEDS ORDERED: VANCOMYCIN/NS 1 GM/250 ML 1 GM/250 ML BAG IV ONE (03:00)
[2017-04-13] MEDS ORDERED: ZOSYN/NS 4.5GM/100ML 4.5 GM/100 ML VIAL IV ONE (03:00)
--- NOTE | 2017-04-13 03:27 | Emergency Department Report ---
ED Lower Extremity HPI - General Chief Complaint: Extremity Injury, Lower Stated Complaint: LEG PAIN Time Seen by Provider: 04/13/17 02:16 Source: patient Mode of arrival: Ambulatory Limitations: Physical Limitation - History of Present Illness Initial Comments: Pt is a 46 yr old male with a h/o uncontrolled DM and more recently s/p L foot abscess I &D and debridement by Dr Sutton 04/02/17. Pt presents to the ED today after being evaluated at clinic for his L surgical foot. Pt does not know why he was sent to the ED. Pt is a poor historian. Otherwise no fevers, chills, NVD , CP, SOB, abd pain, drainage from wound, increased pain in the foot, travel, or sick contacts. - Related Data Previous Rx's Medication Instructions Recorded Last Taken Type Levofloxacin [Levaquin TAB] 750 mg PO Q24HR #10 tablet 04/01/17 Unknown Rx Metformin HCl [Glucophage] 1,000 mg PO BID #60 tablet 04/01/17 Unknown Rx glipiZIDE [Glucotrol] 10 mg PO BIDDIAB #60 tablet 04/01/17 Unknown Rx oxyCODONE /ACETAMINOPHEN [Percocet 1 tab PO Q6HR PRN #30 tablet 04/01/17 Unknown Rx 5/325] Clindamycin [Clindamycin CAP] 300 mg PO Q8H 5 Days 04/04/17 Unknown Rx Allergies Allergy/AdvReac Type Severity Reaction Status Date / Time No Known Allergies Allergy Verified 06/18/16 10:33 ED Review of Systems ROS: Stated complaint: LEG PAIN Other details as noted in HPI Comment: All other systems reviewed and negative ED Past Medical Hx - Past Medical History Previous Medical History?: Yes Hx Hypertension: No Hx Diabetes: Yes Additional medical history: left foot infection/pain - Surgical History Past Surgical History?: Yes Additional Surgical History: left knee - Social History Smoking Status: Never Smoker Substance Use Type: Alcohol - Medications Home Medications: Home Medications Medication Instructions Recorded Confirmed Last Taken Type Levofloxacin [Levaquin TAB] 750 mg PO Q24HR #10 tablet 04/01/17 Unknown Rx Metformin HCl [Glucophage] 1,000 mg PO BID #60 tablet 04/01/17 Unknown Rx glipiZIDE [Glucotrol] 10 mg PO BIDDIAB #60 tablet 04/01/17 Unknown Rx oxyCODONE /ACETAMINOPHEN [Percocet 1 tab PO Q6HR PRN #30 tablet 04/01/17 Unknown Rx 5/325] Clindamycin [Clindamycin CAP] 300 mg PO Q8H 5 Days 04/04/17 Unknown Rx ED Physical Exam - General Limitations: No Limitations General appearance: alert, in no apparent distress - Head Head exam: Present: atraumatic, normocephalic - Eye Eye exam: Present: normal appearance - ENT ENT exam: Present: mucous membranes moist - Neck Neck exam: Present: normal inspection - Respiratory Respiratory exam: Present: normal lung sounds bilaterally. Absent: respiratory distress - Cardiovascular Cardiovascular Exam: Present: regular rate, normal rhythm. Absent: systolic murmur, diastolic murmur, rubs, gallop - GI/Abdominal GI/Abdominal exam: Present: soft, normal bowel sounds - Rectal Rectal exam: Present: deferred - Extremities Exam Extremities exam: Present: full ROM, other (L foot edematous s/p surgery. Plantar surface surgical incision partially dehisced, no erythema, no warmth, no foul smell, no drainage) - Back Exam Back exam: Present: normal inspection - Neurological Exam Neurological exam: Present: alert, oriented X3 - Psychiatric Psychiatric exam: Present: normal affect, normal mood - Skin Skin exam: Present: warm, dry, intact, normal color. Absent: rash ED Course Vital Signs 04/12/17 04/13/17 04/13/17 18:08 03:41 05:55 Temperature 98.3 F Pulse Rate 88 57 L 54 L Respiratory 16 14 14 Rate Blood Pressure 111/74 Blood Pressure 99/64 103/74 [Right] O2 Sat by Pulse 100 97 99 Oximetry 04/13/17 04/13/17 04/13/17 06:55 07:12 09:23 Temperature 97.7 F 97.9 F Pulse Rate 51 L 62 60 Respiratory 15 16 16 Rate Blood Pressure Blood Pressure 108/69 109/79 109/75 [Right] O2 Sat by Pulse 97 98 100 Oximetry ED Lower Extremity MDM - Lab Data Result diagrams: 04/12/17 20:14 04/12/17 20:14 - Radiology Data Radiology results: report reviewed Foot xray: Soft tissue swelling, no destructive bony lesions seen - Medical Decision Making Pt is a poor historian about his surgery and why he was sent to the ED. After examination and reading prior hospital notes, patient likely was following up today in clinic and told to come to the ED for evaluation. It appears the wound on his foot has some wound dehiscence and may be infected. Will treat with antibiotics Critical care attestation.: If time is entered above; I have spent that time in minutes in the direct care of this critically ill patient, excluding procedure time. ED Disposition Clinical Impression: Foot infection Disposition: OP ADMITTED IP TO THIS HOSP Is pt being admited?: No Condition: Stable
--- NOTE | 2017-04-13 06:02 | XRay Report ---
FINAL REPORT EXAM: XR FOOT 3 LT HISTORY: pain, swelling, ulcer TECHNIQUE: Left foot three views PRIORS: None. FINDINGS: There is soft tissue swelling involving the forefoot region. No bony destructive lesion is appreciated. There is no fracture or dislocation seen. IMPRESSION: Soft tissue swelling. No acute bony abnormality seen.
--- NOTE | 2017-04-13 08:06 | History and Physical Report ---
History of Present Illness Date of examination: 04/13/17 Date of admission: 04/13/17 Chief complaint: Left foot abscess History of present illness: Pt is a 46 yr old male with a h/o uncontrolled DM and more recently s/p L foot abscess I &D and debridement by Dr Walsh 04/02/17. Patient was discharged from the hospital on 04/05/17 and was to complete antibiotics for 2-4 weeks per infectious disease consultation. Patient is unable to give history as to the antibiotics for his follow-up. Pt presents to the ED today after being evaluated at clinic for his L surgical foot. Pt does not know why he was sent to the ED. Pt is a poor historian. Otherwise no fevers, chills, NVD, CP, SOB, abd pain, drainage from wound, increased pain in the foot, travel, or sick contacts. Patient denies any headache or visual disturbances. Past History Past Medical History: diabetes, other (DM foot ulcer) Past Surgical History: Other (I and D left foot) Social history: no significant social history Family history: no significant family history Medications and Allergies Allergies Allergy/AdvReac Type Severity Reaction Status Date / Time No Known Allergies Allergy Verified 06/18/16 10:33 Home Medications Medication Instructions Recorded Confirmed Last Taken Type Levofloxacin [Levaquin TAB] 750 mg PO Q24HR #10 tablet 04/01/17 Unknown Rx Metformin HCl [Glucophage] 1,000 mg PO BID #60 tablet 04/01/17 Unknown Rx glipiZIDE [Glucotrol] 10 mg PO BIDDIAB #60 tablet 04/01/17 Unknown Rx oxyCODONE /ACETAMINOPHEN [Percocet 1 tab PO Q6HR PRN #30 tablet 04/01/17 Unknown Rx 5/325] Clindamycin [Clindamycin CAP] 300 mg PO Q8H 5 Days 04/04/17 Unknown Rx Review of Systems All systems: negative Exam - Constitutional Vitals: Temp Pulse Resp BP Pulse Ox 97.7 F 62 16 109/79 98 04/13/17 07:12 04/13/17 07:12 04/13/17 07:12 04/13/17 07:12 04/13/17 07:12 General appearance: Present: no acute distress, well-nourished - EENT Eyes: Present: PERRL ENT: hearing intact, clear oral mucosa - Neck Neck: Present: supple, normal ROM - Respiratory Respiratory effort: normal Respiratory: bilateral: CTA - Cardiovascular Heart Sounds: Present: S1 & S2. Absent: rub, click - Extremities Extremities: pulses symmetrical, No edema Peripheral Pulses: within normal limits - Abdominal General gastrointestinal: Present: soft, non-tender, non-distended, normal bowel sounds Male genitourinary: Present: normal - Integumentary Integumentary: Present: clear, warm, dry - Musculoskeletal Musculoskeletal: gait normal, strength equal bilaterally - Psychiatric Psychiatric: appropriate mood/affect, intact judgment & insight - Neurologic Neurologic: CNII-XII intact, moves all extremities Results - Labs CBC & Chem 7: 04/12/17 20:14 04/12/17 20:14 Labs: Laboratory Last Values WBC 10.8 K/mm3 (4.5-11.0) 04/12/17 20:14 RBC 5.14 M/mm3 (3.65-5.03) H 04/12/17 20:14 Hgb 15.2 gm/dl (11.8-15.2) 04/12/17 20:14 Hct 45.8 % (35.5-45.6) H 04/12/17 20:14 MCV 89 fl (84-94) 04/12/17 20:14 MCH 30 pg (28-32) 04/12/17 20:14 MCHC 33 % (32-34) 04/12/17 20:14 RDW 13.5 % (13.2-15.2) 04/12/17 20:14 Plt Count 309 K/mm3 (140-440) 04/12/17 20:14 Lymph % (Auto) 12.2 % (13.4-35.0) L 04/12/17 20:14 [place] % (Auto) 5.0 % (0.0-7.3) 04/12/17 20:14 Eos % (Auto) 1.1 % (0.0-4.3) 04/12/17 20:14 Baso % (Auto) 0.5 % (0.0-1.8) 04/12/17 20:14 Lymph # 1.3 K/mm3 (1.2-5.4) 04/12/17 20:14 [place] # 0.5 K/mm3 (0.0-0.8) 04/12/17 20:14 Eos # 0.1 K/mm3 (0.0-0.4) 04/12/17 20:14 Baso # 0.1 K/mm3 (0.0-0.1) 04/12/17 20:14 Seg Neutrophils % 81.2 % (40.0-70.0) H 04/12/17 20:14 Seg Neutrophils # 8.8 K/mm3 (1.8-7.7) H 04/12/17 20:14 Sodium 139 mmol/L (137-145) 04/12/17 20:14 Potassium 4.6 mmol/L (3.6-5.0) 04/12/17 20:14 Chloride 98.3 mmol/L (98-107) 04/12/17 20:14 Carbon Dioxide 27 mmol/L (22-30) 04/12/17 20:14 Anion Gap 18 mmol/L 04/12/17 20:14 BUN 18 mg/dL (9-20) 04/12/17 20:14 Creatinine 0.9 mg/dL (0.8-1.5) 04/12/17 20:14 Estimated GFR > 60 ml/min 04/12/17 20:14 BUN/Creatinine Ratio 20.00 % 04/12/17 20:14 Glucose 181 mg/dL (75-100) H 04/12/17 20:14 Calcium 9.7 mg/dL (8.4-10.2) 04/12/17 20:14 Assessment and Plan Assessment and plan: 1. Diabetic foot infection/cellulitis Continue broad-spectrum antibiotics that were previously ordered on discharge . ID consultation. Check sedimentation rate and C-reactive protein. Patient is s/p debridement and I&D 04/02/[address] Strong (orthopedic surgery). The previous wound culture from 03/30 had Enterobacter cloaca and Klebsiella oxytoca, and beta hemolytic strep, sensitivities reviewed and were sensitive to Levaquin. Continue Levaquin, clindamycin for now. ? medical compliance. 2. Uncontrolled diabetes with hyperglycemia. Continue home oral medications and SSI, Diabetic diet, accuchecks 3. Left diabetic foot ulcer , present on admission. Continue local wound care.
[2017-04-13] MEDS ORDERED: TYLENOL PO PRN (08:19)
[2017-04-13] MEDS ORDERED: DULCOLAX PR PRN (08:19)
[2017-04-13] MEDS ORDERED: ZOFRAN IV PRN (08:19)
[2017-04-13] MEDS ORDERED: MILK OF MAGNESIA PO PRN (08:19)
--- NOTE | 2017-04-13 09:30 | Admit Criteria Form ---
Admission Criteria Documentation: CELLULITIS Clinical Indications for Admission to Inpatient Care (Place 'X' for any and all applicable criteria): Admission is indicated for ANY ONE of the following(1)(2)(3)(4)(5): [ ]I. Limb-threatening infection [X]II. High-risk comorbid condition as indicated by ANY ONE of the following: [X]a) Uncontrolled diabetes (eg, HbA1c greater than 10% (0.1)) [ ]b) Cirrhosis [ ]c) Neutropenia [ ]d) Asplenia [ ]e) Immunosuppression [ ]f) Symptomatic heart failure [ ]III. Failure of outpatient therapy as indicated by ALL of the following: [ ]a) Progression or no improvement after adequate trial (minimum of 48 hours, with longer period for stable lower extremity infection) [ ]b) Adequate antibiotic regimen as indicated by use of ANY ONE of the following: [ ]i) First-generation cephalosporin (e.g., cephalexin) [ ]ii) Antistaphylococcal penicillin (e.g., dicloxacillin) [ ]iii) Penicillin-allergic patient regimen (clindamycin, extended-spectrum fluoroquinolone, or doxycycline) [ ]iv) Resistant organism (eg, methicillin-resistant Staphylococcus aureus) regimen (6) [ ]c) Outpatient intravenous therapy regimen is not appropriate due to ANY ONE of the following. (7)(8)(9)(10): [ ]i) It was tried and was not successful (eg, progression of infection). [ ]ii) It is not available or cannot be arranged in a clinically appropriate time frame (e.g., the next day). [ ]iii) Clinical presentation (eg, acuity of infection, rapidity of progression, confirmed or suspected bacteremia) is judged to require ALL of the following: [ ]1) Immediate initiation of intravenous therapy ( eg, cannot wait for next day) [ ]2) Intensity of patient monitoring and observation (eg, vital sign measurement, checks for infection progression) that cannot be provided at other than inpatient level of care [ ]IV. Mental status changes [ ]V. Bacteremia [ ]. Hemodynamic instability [ ]VII. Suspected necrotizing soft tissue infection (e.g., gas in tissue)(11)( 12) [ ]VIII. Orbital infection (13)(14) [ ]IX. Associated surgical procedure (e.g., abscess drainage, debridement) not amenable to outpatient, emergency department, or observation care [ ]X. Cutaneous gangrene [ ]XI. High fever (temperature greater than 39.5 degrees C (103.1 degrees F) (oral)) not responsive to outpatient, emergency department, or observation care therapy [ ]XIII. Inpatient admission required rather than observation care (Also use Cellulitis: Observation Care as appropriate) because of ANY ONE of the following : [ ]a) Periorbital or perineal infection that is severe or worsening [ ]b) Severe pain requiring acute inpatient management [ ]c) IV fluid to replace significant ongoing (e.g., for over 24 hours) losses (greater than 3L/m2 per day) [ ]d) Compartment syndrome monitoring (17) [ ]e) Strict or protective (eg, laminar flow) isolation [ ]f) Urgent debridement or skin grafting [ ]g) Bone or joint debridement [ ]h) Immediate inpatient surgery [ ]i) Other condition, treatment or monitoring requiring inpatient admission Extended stay beyond goal length of stay may be needed for (1)(18): [ ]a) Necrotizing soft tissue infection or fasciitis [ ]b) Gram-negative infection [ ]c) Methicillin-resistant Staphylococcal aureus (MRSA) infection [ ]d) Peripheral venous insufficiency with cellulitis [ ]e) Extensive edema [ ]f) Sepsis or continued Hemodynamic instability [ ]g) Continued high fever or mental status change [ ]h) Bacteremia [ ]i) Active serious comorbid conditions ( eg, heart failure, renal insufficiency) The original [facility] content created by [facility] [employer] has been revised. The portions of the content which have been revised are identified through the use of italic text or in bold, and [facility] has neither reviewed nor approved the modified material. All other unmodified content is copyright [facility] [employer] [facility] Please see references footnoted in the original [facility] [employer] edition 2016 Admission Criteria Met: Yes
[2017-04-13] MEDS ORDERED: LEVAQUIN 750MG/150ML 750 MG/150 ML BAG IV SCH (10:00)
--- NOTE | 2017-04-13 15:15 | Consultation ---
History of Present Illness - Reason for Consult Consult date: 04/13/17 Unresolving Left Foot Infection - History of Present Illness Mr. Wallis is a 46-year-old man known to me from a recent hospitalization for treatment of a left, diabetic foot abscess s/p debridement. Cultures were positive for Enterobacter cloacae, Klebsiella oxytoca and beta- hemolytic Streptococcus. Drainage of subsequent debridement was positive for anginosus group Streptococcus. He was discharged to complete an extended course of Levaquin with Clindamycin for a shorter course. He says he was compliant with this and has finished Clindamycin although still taking Levaquin. He has had intermittent fevers. He was scheduled to see me in my office today, but instead was sent to the ED yesterday by his PCP with concerns of an unresolving left foot infection. Plain film imaging of the foot shows soft tissue swelling without evidence of bony abnormalities. CT imaging during his previous hospitalization did not revealed an abscess, although there were areas along the plantar foot concerning clinically for abscess. He is readmitted now for further evaluation. Of note, he says he did not change the dressing on his foot at all after being discharged from the hospital. Past History Past Medical History: diabetes, other (DM foot ulcer) Past Surgical History: Other (I and D left foot) Social history: lives with family, other ([employer] workers) Family history: no significant family history Medications and Allergies Allergies Allergy/AdvReac Type Severity Reaction Status Date / Time No Known Allergies Allergy Verified 06/18/16 10:33 Home Medications Medication Instructions Recorded Confirmed Last Taken Type Levofloxacin [Levaquin TAB] 750 mg PO Q24HR #10 tablet 04/01/17 Unknown Rx Metformin HCl [Glucophage] 1,000 mg PO BID #60 tablet 04/01/17 Unknown Rx glipiZIDE [Glucotrol] 10 mg PO BIDDIAB #60 tablet 04/01/17 Unknown Rx oxyCODONE /ACETAMINOPHEN [Percocet 1 tab PO Q6HR PRN #30 tablet 04/01/17 Unknown Rx 5/325] Clindamycin [Clindamycin CAP] 300 mg PO Q8H 5 Days 04/04/17 Unknown Rx Active Meds: Active Medications Acetaminophen (Tylenol) 650 mg PO Q4H PRN PRN Reason: Pain MILD(1-3)/Fever >100.5/GASTELUM Bisacodyl (Dulcolax) 10 mg [place] QDAY PRN PRN Reason: Constipation unrelieved by MOM Enoxaparin Sodium (Lovenox) 40 mg SUB-Q QDAY [facility] Clindamycin HCl (Cleocin 900 Mg/50 Ml) 900 mg in 50 mls @ 100 mls/hr IV Q8HR [facility] PRN Reason: Protocol Levofloxacin/Dextrose (Levaquin 750mg/150ml) 750 mg in 150 mls @ 100 mls/hr IV Q24HR [facility] PRN Reason: Protocol Sodium Chloride (Nacl 0.9% 1000 Ml) 1,000 mls @ 75 mls/hr IV DIRECT [facility] Magnesium Hydroxide (Milk Of Magnesia) 30 ml PO Q4H PRN PRN Reason: Constipation Morphine Sulfate (Morphine) 2 mg IV Q4H PRN PRN Reason: Pain, Moderate (4-6) Ondansetron HCl (Zofran) 4 mg IV Q8H PRN PRN Reason: N/V unrelieved by Reglan Review of Systems All systems: negative Constitutional: fever, sweats, no chills, no poor appetite Cardiovascular: no chest pain, no shortness of breath Gastrointestinal: no abdominal pain, no nausea, no vomiting, no diarrhea Integumentary: no rash, no pruritis Physical Examination - Constitutional Vitals: Vital Signs Temp Pulse Resp BP Pulse Ox 98.3 F 60 14 112/80 97 04/13/17 10:35 04/13/17 10:35 04/13/17 10:35 04/13/17 10:35 04/13/17 10:35 Temperature -Last 24 Hours Temperature 98.3 F Temperature 97.9 F General appearance: Present: no acute distress (non-toxic appearance) - EENT Eyes: Absent: conjunctival injection - Neck Neck: Present: supple - Respiratory Respiratory effort: normal Respiratory: bilateral: CTA - Cardiovascular Rhythm: regular Heart Sounds: Present: S1 & S2 - Extremities Extremity abnormal: edema, other (plantar surface of left foot with edema along the areas debrided recently, there is questionable fluctuance at the ball of the foot, but no expressabel drainage, no increased warmth, no erythema; there is no significant tenderness) - Abdominal General gastrointestinal: Present: soft, non-distended - Integumentary Integumentary: Absent: rash - Psychiatric Psychiatric: appropriate mood/affect, intact judgment & insight - Neurologic Neurologic: moves all extremities Results - Labs CBC & Chem 7: 04/12/17 20:14 04/12/17 20:14 Labs: Abnormal lab results 04/13/17 Range/Units 13:09 Lactic Acid 2.80 H* (0.7-2.0) mmol/L Microbiology 04/13/17 03:15 Peripheral/Venous Blood Culture - Preliminary Culture in Progress 04/13/17 03:15 Peripheral/Venous Blood Culture - Preliminary Culture in Progress Assessment and Plan - Patient Problems (1) Abscess of left foot Current Visit: No Status: Acute Plan to address problem: 1. MRI left foot to rule out abscess. Surgical drainage as necessary. 2. Unasyn pending further culture data/ studies. 3. Daily dressing changes and local wound care. (2) Diabetic foot ulcer Current Visit: No Status: Acute Qualifiers: Diabetic foot ulcer location: midfoot Diabetes mellitus type: type 1 Laterality: left Non-pressure ulcer stage: unspecified non-pressure ulcer stage Qualified Code(s): E10.621 - Type 1 diabetes mellitus with foot ulcer; L97.429 - Non-pressure chronic ulcer of left heel and midfoot with unspecified severity Plan to address problem: Per above.
[2017-04-13] MEDS: LOVENOX SUB-Q SCH (15:43)
[2017-04-13] MEDS: CLEOCIN 900 MG/50 mL 900 MG/50 ML BAG IV SCH ×2 (15:43→22:01)
--- NOTE | 2017-04-13 16:00 | Consultation ---
History of Present Illness - HPI Consult date: 04/13/17 Consult reason: joint pain Past History Past Medical History: diabetes, other (DM foot ulcer) Past Surgical History: Other (I and D left foot) Social history: lives with family, other ([employer] workers) Family history: no significant family history Medications and Allergies Allergies Allergy/AdvReac Type Severity Reaction Status Date / Time No Known Allergies Allergy Verified 06/18/16 10:33 Home Medications Medication Instructions Recorded Confirmed Last Taken Type Levofloxacin [Levaquin TAB] 750 mg PO Q24HR #10 tablet 04/01/17 Unknown Rx Metformin HCl [Glucophage] 1,000 mg PO BID #60 tablet 04/01/17 Unknown Rx glipiZIDE [Glucotrol] 10 mg PO BIDDIAB #60 tablet 04/01/17 Unknown Rx oxyCODONE /ACETAMINOPHEN [Percocet 1 tab PO Q6HR PRN #30 tablet 04/01/17 Unknown Rx 5/325] Clindamycin [Clindamycin CAP] 300 mg PO Q8H 5 Days 04/04/17 Unknown Rx Active Meds: Active Medications Acetaminophen (Tylenol) 650 mg PO Q4H PRN PRN Reason: Pain MILD(1-3)/Fever >100.5/GASTELUM Bisacodyl (Dulcolax) 10 mg [place] QDAY PRN PRN Reason: Constipation unrelieved by MOM Enoxaparin Sodium (Lovenox) 40 mg SUB-Q QDAY [facility] Last Admin: 04/13/17 15:43 Dose: 40 mg Clindamycin HCl (Cleocin 900 Mg/50 Ml) 900 mg in 50 mls @ 100 mls/hr IV Q8HR [facility] PRN Reason: Protocol Last Admin: 04/13/17 15:43 Dose: 100 mls/hr Levofloxacin/Dextrose (Levaquin 750mg/150ml) 750 mg in 150 mls @ 100 mls/hr IV Q24HR [facility] PRN Reason: Protocol Last Admin: 04/13/17 15:42 Dose: 100 mls/hr Sodium Chloride (Nacl 0.9% 1000 Ml) 1,000 mls @ 75 mls/hr IV DIRECT MAYK[facility] Ampicillin Sodium/Sulbactam Sodium (Unasyn/Ns 3 Gm/100 Ml) 3 gm in 100 mls @ 100 mls/hr IV Q6H [facility] PRN Reason: Protocol Magnesium Hydroxide (Milk Of Magnesia) 30 ml PO Q4H PRN PRN Reason: Constipation Morphine Sulfate (Morphine) 2 mg IV Q4H PRN PRN Reason: Pain, Moderate (4-6) Ondansetron HCl (Zofran) 4 mg IV Q8H PRN PRN Reason: N/V unrelieved by Reglan Assessment and Plan 46 yr old male with a h/o uncontrolled DM and more recently s/p L foot abscess I &D and debridement by Dr Strong 04/02/17. Pt presents to the ED today after being evaluated at clinic for his L surgical foot. Patient was seen in office on wednesday. alert orientated male in NAD left foot wound has improved since office visit. no abcess present. Good ankle AROM Rec Continue antibiotics and dressing changes. No surgical debridment needed.
[2017-04-13] MEDS: UNASYN/NS 3 GM/100 ML 3 GM/100 ML BAG IV SCH ×2 (17:00→23:30)
[2017-04-13] MEDS: NACL 0.9% 1000 ML 1,000 ML IV SCH (22:01)
[2017-04-13] MEDS: NOVOLOG SUB-Q SCH (22:03)
[2017-04-14] MEDS: UNASYN/NS 3 GM/100 ML 3 GM/100 ML BAG IV SCH ×4 (04:57→22:44)
[2017-04-14 05:23] LABS: Basophils % (Auto) 1.2 % (0.0-1.8); Eosinophils % (Auto) 3.6 % (0.0-4.3); Hematocrit 40.9 % (35.5-45.6); Hemoglobin 13.7 gm/dl (11.8-15.2); Mean Corpuscular HGB Conc 33 % (32-34); Mean Corpuscular Hemoglobin 29 pg (28-32); Mean Corpuscular Volume 88 fl (84-94); Platelet Count 224 K/mm3 (140-440); Red Blood Count 4.66 M/mm3 (3.65-5.03); Red Cell Distribution Width 13.5 % (13.2-15.2); White Blood Count 5.2 K/mm3 (4.5-11.0)
[2017-04-14 05:43] LABS: Anion Gap 19 mmol/L; Blood Urea Nitrogen 14 mg/dL (9-20); Calcium 8.6 mg/dL (8.4-10.2); Carbon Dioxide 25 mmol/L (22-30); Chloride 104.6 mmol/L (98-107); Glucose 117 mg/dL (75-100); Potassium 4.4 mmol/L (3.6-5.0); Sodium 144 mmol/L (137-145)
[2017-04-14] MEDS: CLEOCIN 900 MG/50 mL 900 MG/50 ML BAG IV SCH (06:41)
--- NOTE | 2017-04-14 08:49 | Progress Note ---
Assessment and Plan Assessment and plan: 1. Diabetic foot abscess/cellulitis. MRI of left foot. Surgical drainage is necessary. Continue antibiotics per ID. Wound care. 2. Uncontrolled diabetes with hyperglycemia. Continue home oral medications and SSI, Diabetic diet, accuchecks History Interval history: No new issues overnight. Hospitalist Physical - Constitutional Vitals: Temp Pulse Resp BP Pulse Ox 98.8 F 62 18 104/63 98 04/13/17 22:00 04/13/17 22:00 04/13/17 22:00 04/13/17 22:00 04/13/17 22:00 General appearance: Present: no acute distress (non-toxic appearance) - EENT Eyes: Present: PERRL, EOM intact ENT: hearing intact, clear oral mucosa, dentition normal - Neck Neck: Present: supple, normal ROM - Respiratory Respiratory effort: normal Respiratory: bilateral: CTA - Cardiovascular Rhythm: regular Heart Sounds: Present: S1 & S2. Absent: gallop, rub - Extremities Extremities: no ischemia, No edema, Full ROM - Abdominal General gastrointestinal: soft, non-tender, non-distended, normal bowel sounds - Integumentary Integumentary: Present: clear, warm, dry - Neurologic Neurologic: CNII-XII intact, moves all extremities Results - Labs CBC & Chem 7: 04/14/17 05:01 04/14/17 05:01 Labs: Laboratory Last Values WBC 5.2 K/mm3 (4.5-11.0) 04/14/17 05:01 RBC 4.66 M/mm3 (3.65-5.03) 04/14/17 05:01 Hgb 13.7 gm/dl (11.8-15.2) 04/14/17 05:01 Hct 40.9 % (35.5-45.6) 04/14/17 05:01 MCV 88 fl (84-94) 04/14/17 05:01 MCH 29 pg (28-32) 04/14/17 05:01 MCHC 33 % (32-34) 04/14/17 05:01 RDW 13.5 % (13.2-15.2) 04/14/17 05:01 Plt Count 224 K/mm3 (140-440) 04/14/17 05:01 Lymph % (Auto) 19.3 % (13.4-35.0) 04/14/17 05:01 [place] % (Auto) 10.9 % (0.0-7.3) H 04/14/17 05:01 Eos % (Auto) 3.6 % (0.0-4.3) 04/14/17 05:01 Baso % (Auto) 1.2 % (0.0-1.8) 04/14/17 05:01 Lymph # 1.0 K/mm3 (1.2-5.4) L 04/14/17 05:01 [place] # 0.6 K/mm3 (0.0-0.8) 04/14/17 05:01 Eos # 0.2 K/mm3 (0.0-0.4) 04/14/17 05:01 Baso # 0.1 K/mm3 (0.0-0.1) 04/14/17 05:01 Seg Neutrophils % 65.0 % (40.0-70.0) 04/14/17 05:01 Seg Neutrophils # 3.4 K/mm3 (1.8-7.7) 04/14/17 05:01 ESR 20 mm/Hr (0-20) 04/13/17 15:59 Sodium 144 mmol/L (137-145) 04/14/17 05:01 Potassium 4.4 mmol/L (3.6-5.0) 04/14/17 05:01 Chloride 104.6 mmol/L (98-107) 04/14/17 05:01 Carbon Dioxide 25 mmol/L (22-30) 04/14/17 05:01 Anion Gap 19 mmol/L 04/14/17 05:01 BUN 14 mg/dL (9-20) 04/14/17 05:01 Creatinine 0.8 mg/dL (0.8-1.5) 04/14/17 05:01 Estimated GFR > 60 ml/min 04/14/17 05:01 BUN/Creatinine Ratio 17.50 % 04/14/17 05:01 Glucose 117 mg/dL (75-100) H 04/14/17 05:01 POC Glucose 82 (70-105) 04/14/17 05:39 Lactic Acid 2.80 mmol/L (0.7-2.0) H* 04/13/17 13:09 Calcium 8.6 mg/dL (8.4-10.2) 04/14/17 05:01 C-Reactive Protein 0.40 mg/dL (0.00-1.30) 04/13/17 15:59
[2017-04-14] MEDS: LOVENOX SUB-Q SCH (14:18)
[2017-04-14] MEDS: NACL 0.9% 1000 ML 1,000 ML IV SCH (14:19)
[2017-04-14] MEDS: NOVOLOG SUB-Q SCH ×3 (18:08→22:43)
[2017-04-14] MEDS: MORPHINE IV PRN (19:32)
[2017-04-15] MEDS: UNASYN/NS 3 GM/100 ML 3 GM/100 ML BAG IV SCH ×4 (05:43→22:28)
[2017-04-15] MEDS: NACL 0.9% 1000 ML 1,000 ML IV SCH ×2 (05:46→20:34)
[2017-04-15 06:06] LABS: Basophils % (Auto) 1.1 % (0.0-1.8); Hematocrit 43.5 % (35.5-45.6); Hemoglobin 14.3 gm/dl (11.8-15.2); Mean Corpuscular HGB Conc 33 % (32-34); Mean Corpuscular Hemoglobin 29 pg (28-32); Mean Corpuscular Volume 87 fl (84-94); Platelet Count 213 K/mm3 (140-440); Red Blood Count 4.98 M/mm3 (3.65-5.03); Red Cell Distribution Width 13.2 % (13.2-15.2); White Blood Count 4.8 K/mm3 (4.5-11.0)
[2017-04-15 06:30] LABS: Anion Gap 19 mmol/L; BUN/Creatinine Ratio 11.66; Blood Urea Nitrogen 7 mg/dL (9-20); Calcium 8.8 mg/dL (8.4-10.2); Carbon Dioxide 24 mmol/L (22-30); Chloride 104.6 mmol/L (98-107); Glucose 107 mg/dL (75-100); Potassium 3.7 mmol/L (3.6-5.0); Sodium 144 mmol/L (137-145)
[2017-04-15] MEDS: NOVOLOG SUB-Q SCH ×5 (07:25→22:32)
--- NOTE | 2017-04-15 08:31 | Progress Note ---
Assessment and Plan Assessment and plan: 1. Diabetic foot abscess/cellulitis. Await MRI of left foot. Surgical drainage is necessary. Continue antibiotics per ID. Wound care. 2. Uncontrolled diabetes with hyperglycemia. Continue home oral medications and SSI, Diabetic diet, accuchecks History Interval history: No new issues overnight. Hospitalist Physical - Constitutional Vitals: Temp Pulse Resp BP Pulse Ox 98.4 F 60 18 107/67 96 04/15/17 00:08 04/15/17 00:08 04/15/17 00:08 04/15/17 00:08 04/15/17 00:08 General appearance: Present: no acute distress (non-toxic appearance) - EENT Eyes: Present: PERRL, EOM intact ENT: hearing intact, clear oral mucosa, dentition normal - Neck Neck: Present: supple, normal ROM - Respiratory Respiratory effort: normal Respiratory: bilateral: CTA - Cardiovascular Rhythm: regular Heart Sounds: Present: S1 & S2. Absent: gallop, rub - Extremities Extremities: no ischemia, No edema, Full ROM - Abdominal General gastrointestinal: soft, non-tender, non-distended, normal bowel sounds - Integumentary Integumentary: Present: clear, warm, dry - Neurologic Neurologic: CNII-XII intact, moves all extremities Results - Labs CBC & Chem 7: 04/15/17 05:36 04/15/17 05:36 Labs: Laboratory Last Values WBC 4.8 K/mm3 (4.5-11.0) 04/15/17 05:36 RBC 4.98 M/mm3 (3.65-5.03) 04/15/17 05:36 Hgb 14.3 gm/dl (11.8-15.2) 04/15/17 05:36 Hct 43.5 % (35.5-45.6) 04/15/17 05:36 MCV 87 fl (84-94) 04/15/17 05:36 MCH 29 pg (28-32) 04/15/17 05:36 MCHC 33 % (32-34) 04/15/17 05:36 RDW 13.2 % (13.2-15.2) 04/15/17 05:36 Plt Count 213 K/mm3 (140-440) 04/15/17 05:36 Lymph % (Auto) 26.1 % (13.4-35.0) 04/15/17 05:36 [place] % (Auto) 8.9 % (0.0-7.3) H 04/15/17 05:36 Eos % (Auto) 3.0 % (0.0-4.3) 04/15/17 05:36 Baso % (Auto) 1.1 % (0.0-1.8) 04/15/17 05:36 Lymph # 1.3 K/mm3 (1.2-5.4) 04/15/17 05:36 [place] # 0.4 K/mm3 (0.0-0.8) 04/15/17 05:36 Eos # 0.1 K/mm3 (0.0-0.4) 04/15/17 05:36 Baso # 0.1 K/mm3 (0.0-0.1) 04/15/17 05:36 Seg Neutrophils % 60.9 % (40.0-70.0) 04/15/17 05:36 Seg Neutrophils # 2.9 K/mm3 (1.8-7.7) 04/15/17 05:36 ESR 20 mm/Hr (0-20) 04/13/17 15:59 Sodium 144 mmol/L (137-145) 04/15/17 05:36 Potassium 3.7 mmol/L (3.6-5.0) 04/15/17 05:36 Chloride 104.6 mmol/L (98-107) 04/15/17 05:36 Carbon Dioxide 24 mmol/L (22-30) 04/15/17 05:36 Anion Gap 19 mmol/L 04/15/17 05:36 BUN 7 mg/dL (9-20) L 04/15/17 05:36 Creatinine 0.6 mg/dL (0.8-1.5) L 04/15/17 05:36 Estimated GFR > 60 ml/min 04/15/17 05:36 BUN/Creatinine Ratio 11.66 % 04/15/17 05:36 Glucose 107 mg/dL (75-100) H 04/15/17 05:36 POC Glucose 106 (70-105) H 04/15/17 06:17 Lactic Acid 2.80 mmol/L (0.7-2.0) H* 04/13/17 13:09 Calcium 8.8 mg/dL (8.4-10.2) 04/15/17 05:36 C-Reactive Protein 0.40 mg/dL (0.00-1.30) 04/13/17 15:59
[2017-04-15] MEDS: LOVENOX SUB-Q SCH (10:00)
--- NOTE | 2017-04-15 12:05 | Progress Note ---
Assessment and Plan - Patient Problems (1) Abscess of left foot Current Visit: No Status: Acute Plan to address problem: Continue current antibiotics pending results of MRI left foot. If no abscess is seen, then patient is okay to go to continue Levaquin course , perhaps an additional 10-14 days after discharge. Duration determine by clinical exam at outpatient follow-up. (2) Diabetic foot ulcer Current Visit: No Status: Acute Qualifiers: Diabetic foot ulcer location: midfoot Diabetes mellitus type: type 1 Laterality: left Non-pressure ulcer stage: unspecified non-pressure ulcer stage Qualified Code(s): E10.621 - Type 1 diabetes mellitus with foot ulcer; L97.429 - Non-pressure chronic ulcer of left heel and midfoot with unspecified severity Plan to address problem: Continue good glycemic control. Subjective Date of service: 04/15/17 Interval history: Remains afebrile. Still awaiting MRI left lower extremity. Objective - Constitutional Vitals: Vital Signs Temp Pulse Resp BP Pulse Ox 97.9 F 63 19 117/85 97 04/15/17 07:00 04/15/17 07:00 04/15/17 07:00 04/15/17 07:00 04/15/17 07:00 Temperature -Last 24 Hours Temperature 97.9 F Temperature 98.4 F Temperature 97.6 F General appearance: Present: no acute distress - Respiratory Respiratory effort: normal Respiratory: bilateral: CTA - Cardiovascular Rhythm: regular Heart Sounds: Present: S1 & S2 Extremities: abnormal (left foot with plantar wound packed, serosanguinous drainage, no purulence noted, minimal erythema, edema unchanged) - Labs CBC & Chem 7: 04/15/17 05:36 04/15/17 05:36 Labs: Abnormal lab results 04/14/17 04/14/17 04/15/17 Range/Units 11:33 21:40 05:36 [place] % (Auto) 8.9 H (0.0-7.3) % BUN (9-20) mg/dL Creatinine (0.8-1.5) mg/dL Glucose (75-100) mg/dL POC Glucose 173 H 174 H (70-105) 04/15/17 04/15/17 Range/Units 05:36 06:17 [place] % (Auto) (0.0-7.3) % BUN 7 L (9-20) mg/dL Creatinine 0.6 L (0.8-1.5) mg/dL Glucose 107 H (75-100) mg/dL POC Glucose 106 H (70-105) Microbiology 04/13/17 03:15 Peripheral/Venous Blood Culture - Preliminary NO GROWTH AFTER 48 HOURS 04/13/17 03:15 Peripheral/Venous Blood Culture - Preliminary NO GROWTH AFTER 48 HOURS
[2017-04-15] MEDS: MORPHINE IV PRN ×2 (13:36→20:33)
[2017-04-16] MEDS: UNASYN/NS 3 GM/100 ML 3 GM/100 ML BAG IV SCH ×4 (03:48→23:02)
[2017-04-16] MEDS: MORPHINE IV PRN (03:51)
[2017-04-16 05:13] LABS: Basophils % (Auto) 1.1 % (0.0-1.8); Eosinophils % (Auto) 2.8 % (0.0-4.3); Hematocrit 43.3 % (35.5-45.6); Hemoglobin 14.1 gm/dl (11.8-15.2); Mean Corpuscular HGB Conc 33 % (32-34); Mean Corpuscular Hemoglobin 29 pg (28-32); Mean Corpuscular Volume 88 fl (84-94); Platelet Count 214 K/mm3 (140-440); Red Blood Count 4.92 M/mm3 (3.65-5.03); Red Cell Distribution Width 13.2 % (13.2-15.2); White Blood Count 5.2 K/mm3 (4.5-11.0)
[2017-04-16 06:23] LABS: Anion Gap 17 mmol/L; Blood Urea Nitrogen 7 mg/dL (9-20); Carbon Dioxide 26 mmol/L (22-30); Chloride 104.6 mmol/L (98-107); Glucose 105 mg/dL (75-100); Potassium 4.1 mmol/L (3.6-5.0); Sodium 143 mmol/L (137-145)
--- NOTE | 2017-04-16 07:42 | Progress Note ---
Assessment and Plan - Patient Problems (1) Diabetes mellitus Current Visit: Yes Status: Acute Qualifiers: Diabetes mellitus type: D Diabetes mellitus complication status: D Diabetes mellitus complication detail: D Diabetic retinopathy severity: D Proliferative retinopathy type: P Diabetes mellitus macular edema: D Diabetes mellitus longterm insulin use: D Laterality: L Chronic kidney disease stage: C Plan to address problem: Continue Accu-Chek, sliding scale insulin, ADA diet follow hemoglobin A1c (2) Abscess of left foot Current Visit: No Status: Acute Plan to address problem: Continue IV antibiotics. Patient scheduled for MRI of the left foot. Follow cultures History Interval history: Patient lying in bed state that he has some foot pain Hospitalist Physical - Constitutional Vitals: Temp Pulse Resp BP Pulse Ox 99.0 F 56 L 20 129/84 96 04/16/17 00:00 04/16/17 00:00 04/16/17 00:00 04/16/17 00:00 04/16/17 00:00 General appearance: Present: mild distress - EENT Eyes: Present: PERRL, EOM intact ENT: hearing intact, clear oral mucosa - Neck Neck: Present: supple, normal ROM - Respiratory Respiratory effort: normal Respiratory: bilateral: CTA - Cardiovascular Rhythm: regular Heart Sounds: Present: S1 & S2 - Extremities Extremities: no ischemia, No edema - Abdominal General gastrointestinal: soft, non-tender, non-distended, normal bowel sounds - Psychiatric Psychiatric: appropriate mood/affect, intact judgment & insight - Neurologic Neurologic: CNII-XII intact Results - Labs CBC & Chem 7: 04/16/17 03:41 04/16/17 03:36 Labs: Laboratory Last Values WBC 5.2 K/mm3 (4.5-11.0) 04/16/17 03:41 RBC 4.92 M/mm3 (3.65-5.03) 04/16/17 03:41 Hgb 14.1 gm/dl (11.8-15.2) 04/16/17 03:41 Hct 43.3 % (35.5-45.6) 04/16/17 03:41 MCV 88 fl (84-94) 04/16/17 03:41 MCH 29 pg (28-32) 04/16/17 03:41 MCHC 33 % (32-34) 04/16/17 03:41 RDW 13.2 % (13.2-15.2) 04/16/17 03:41 Plt Count 214 K/mm3 (140-440) 04/16/17 03:41 Lymph % (Auto) 23.4 % (13.4-35.0) 04/16/17 03:41 [place] % (Auto) 7.3 % (0.0-7.3) 04/16/17 03:41 Eos % (Auto) 2.8 % (0.0-4.3) 04/16/17 03:41 Baso % (Auto) 1.1 % (0.0-1.8) 04/16/17 03:41 Lymph # 1.2 K/mm3 (1.2-5.4) 04/16/17 03:41 [place] # 0.4 K/mm3 (0.0-0.8) 04/16/17 03:41 Eos # 0.1 K/mm3 (0.0-0.4) 04/16/17 03:41 Baso # 0.1 K/mm3 (0.0-0.1) 04/16/17 03:41 Seg Neutrophils % 65.4 % (40.0-70.0) 04/16/17 03:41 Seg Neutrophils # 3.4 K/mm3 (1.8-7.7) 04/16/17 03:41 ESR 20 mm/Hr (0-20) 04/13/17 15:59 Sodium 143 mmol/L (137-145) 04/16/17 03:36 Potassium 4.1 mmol/L (3.6-5.0) 04/16/17 03:36 Chloride 104.6 mmol/L (98-107) 04/16/17 03:36 Carbon Dioxide 26 mmol/L (22-30) 04/16/17 03:36 Anion Gap 17 mmol/L 04/16/17 03:36 BUN 7 mg/dL (9-20) L 04/16/17 03:36 Creatinine 0.7 mg/dL (0.8-1.5) L 04/16/17 03:36 Estimated GFR > 60 ml/min 04/16/17 03:36 BUN/Creatinine Ratio 10.00 % 04/16/17 03:36 Glucose 105 mg/dL (75-100) H 04/16/17 03:36 POC Glucose 104 (70-105) 04/16/17 06:11 Lactic Acid 2.80 mmol/L (0.7-2.0) H* 04/13/17 13:09 Calcium 9.0 mg/dL (8.4-10.2) 04/16/17 03:36 C-Reactive Protein 0.40 mg/dL (0.00-1.30) 04/13/17 15:59
[2017-04-16] MEDS: NOVOLOG SUB-Q SCH ×4 (08:00→23:03)
[2017-04-16] MEDS: LOVENOX SUB-Q SCH (11:37)
[2017-04-16] MEDS: NACL 0.9% 1000 ML 1,000 ML IV SCH (11:38)
--- NOTE | 2017-04-16 19:56 | Magnetic Resonance Report ---
FINAL REPORT PROCEDURE: MR PAREDES NONJOINT LT WO/W CON TECHNIQUE: Magnetic resonance imaging of the LEFT leg was performed using standard pulse sequences. HISTORY: Left foot abscess. COMPARISON: Radiographs dated 04/12/2017. CT scan dated 03/29/2017. FINDINGS: Bones: Mild narrowing and degenerative change of the 1st MTP joint. Ligaments and tendons: Musculature: None. Mass lesions: None. Fluid collections: None. Neurovascular bundles: Normal. Soft tissues: Ulceration in the plantar soft tissues medially at the level of the tarsometatarsal joints. Moderate surrounding abnormal soft tissue signal intensity. Overlying skin thickening and induration. Ill-defined collection, low T1 and T2 signal intensity this area measuring 1.8 x 1.3 centimeters and extending anterior posterior 4.5 centimeters. Plantar fascia somewhat indistinct in this region. IMPRESSION: Medial plantar soft tissue ulceration at the level of the tarsometatarsal joints. Moderate surrounding abnormal soft tissue signal intensity with overlying skin thickening and induration. Findings concerning for infectious/inflammatory process including cellulitis. Ill-defined collection in this region, cannot exclude abscess. Examination with contrast may be helpful for better visualization. No obvious osseous marrow signal abnormality to suggest osteomyelitis.
--- NOTE | 2017-04-17 00:52 | Consultation ---
REASON FOR CONSULTATION: Left foot abscess. BRIEF HISTORY: The patient is a 46-year-old male who was admitted to the service of Dr. Luis mcdaniel from the Emergency Clinic. The patient has been seen in the office 2 days before and recommended at that point to attend the wound clinic at the hospital. The patient had had about a week before I and D of a plantar abscess of the left foot. This abscess was related to puncture of foot by nail, the patient . The patient is seen in the hospital at this point. PHYSICAL EXAMINATION: GENERAL: Demonstrates an alert and oriented male who is in no acute distress. EXTREMITIES: Today demonstrates the foot looks good and viable. The foot is improved since the last time the patient was seen. There appears to be no drainage from the wound. The wound is clean and appears to be healing well. IMPRESSION: Healing left foot after drainage of abscess. RECOMMENDATIONS: At this point, I do not believe this patient requires any surgery. I believe this requires only to continue his antibiotic and wound management. The patient was explained that he needs to follow with us in another week or 10 days at the Hospital for evaluation and followup. Prognosis is good at this point. JOB# [id number] DANE/SCOTT
[2017-04-17] MEDS: UNASYN/NS 3 GM/100 ML 3 GM/100 ML BAG IV SCH ×3 (04:45→16:45)
[2017-04-17 06:34] LABS: Basophils % (Auto) 0.9 % (0.0-1.8); Eosinophils % (Auto) 3.4 % (0.0-4.3); Hematocrit 41.7 % (35.5-45.6); Hemoglobin 13.7 gm/dl (11.8-15.2); Mean Corpuscular HGB Conc 33 % (32-34); Mean Corpuscular Hemoglobin 29 pg (28-32); Mean Corpuscular Volume 88 fl (84-94); Platelet Count 199 K/mm3 (140-440); Red Blood Count 4.73 M/mm3 (3.65-5.03); Red Cell Distribution Width 13.2 % (13.2-15.2); White Blood Count 4.9 K/mm3 (4.5-11.0)
[2017-04-17 06:42] LABS: Alanine Aminotransferase 28 units/L (7-56); Albumin 3.5 g/dL (3.9-5); Albumin/Globulin Ratio 1.2 %; Alkaline Phosphatase 69 units/L (35-129); Anion Gap 17 mmol/L; Blood Urea Nitrogen 7 mg/dL (9-20); Calcium 8.7 mg/dL (8.4-10.2); Carbon Dioxide 26 mmol/L (22-30); Chloride 101.4 mmol/L (98-107); Glucose 200 mg/dL (75-100); Potassium 4.1 mmol/L (3.6-5.0); Sodium 140 mmol/L (137-145); Total Protein 6.5 g/dL (6.3-8.2)
[2017-04-17] MEDS: NOVOLOG SUB-Q SCH ×3 (08:26→16:56)
--- NOTE | 2017-04-17 09:36 | Progress Note ---
Assessment and Plan - Patient Problems (1) Diabetes mellitus Current Visit: Yes Status: Acute Qualifiers: Diabetes mellitus type: D Diabetes mellitus complication status: D Diabetes mellitus complication detail: D Diabetic retinopathy severity: D Proliferative retinopathy type: P Diabetes mellitus macular edema: D Diabetes mellitus long-term insulin use: D Laterality: L Chronic kidney disease stage: C Plan to address problem: Cont insulin coverage reasonable BG levels (2) Abscess of left foot Current Visit: No Status: Acute Plan to address problem: Patient to be on PO abx. Needs home health for dressing History Interval history: Sx better Hospitalist Physical - Constitutional Vitals: Temp Pulse Resp BP Pulse Ox 97.9 F 87 99 H 123/79 97 04/17/17 07:00 04/17/17 07:00 04/17/17 07:00 04/17/17 07:00 04/17/17 00:00 General appearance: Present: mild distress - EENT Eyes: Present: PERRL, EOM intact - Neck Neck: Present: supple, normal ROM - Respiratory Respiratory effort: normal Respiratory: bilateral: CTA - Cardiovascular Heart rate: 75 Rhythm: regular Heart Sounds: Present: S1 & S2 - Extremities Extremity abnormal: ulceration (l foot abscess) Peripheral Pulses: abnormal - Abdominal General gastrointestinal: soft, non-tender, non-distended - Integumentary Integumentary: Present: clear, warm, dry, erythema - Psychiatric Psychiatric: appropriate mood/affect, intact judgment & insight, memory intact - Neurologic Neurologic: CNII-XII intact, moves all extremities - Allied Health Allied health notes reviewed: nursing, case management Results - Labs CBC & Chem 7: 04/18/17 06:28 04/18/17 06:28 Labs: Laboratory Last Values WBC 4.9 K/mm3 (4.5-11.0) 04/17/17 05:39 RBC 4.73 M/mm3 (3.65-5.03) 04/17/17 05:39 Hgb 13.7 gm/dl (11.8-15.2) 04/17/17 05:39 Hct 41.7 % (35.5-45.6) 04/17/17 05:39 MCV 88 fl (84-94) 04/17/17 05:39 MCH 29 pg (28-32) 04/17/17 05:39 MCHC 33 % (32-34) 04/17/17 05:39 RDW 13.2 % (13.2-15.2) 04/17/17 05:39 Plt Count 199 K/mm3 (140-440) 04/17/17 05:39 Lymph % (Auto) 23.1 % (13.4-35.0) 04/17/17 05:39 Hopkins % (Auto) 10.1 % (0.0-7.3) H 04/17/17 05:39 Eos % (Auto) 3.4 % (0.0-4.3) 04/17/17 05:39 Baso % (Auto) 0.9 % (0.0-1.8) 04/17/17 05:39 Lymph # 1.1 K/mm3 (1.2-5.4) L 04/17/17 05:39 Hopkins # 0.5 K/mm3 (0.0-0.8) 04/17/17 05:39 Eos # 0.2 K/mm3 (0.0-0.4) 04/17/17 05:39 Baso # 0.0 K/mm3 (0.0-0.1) 04/17/17 05:39 Seg Neutrophils % 62.5 % (40.0-70.0) 04/17/17 05:39 Seg Neutrophils # 3.1 K/mm3 (1.8-7.7) 04/17/17 05:39 ESR 20 mm/Hr (0-20) 04/13/17 15:59 Sodium 140 mmol/L (137-145) 04/17/17 05:39 Potassium 4.1 mmol/L (3.6-5.0) 04/17/17 05:39 Chloride 101.4 mmol/L (98-107) 04/17/17 05:39 Carbon Dioxide 26 mmol/L (22-30) 04/17/17 05:39 Anion Gap 17 mmol/L 04/17/17 05:39 BUN 7 mg/dL (9-20) L 04/17/17 05:39 Creatinine 0.7 mg/dL (0.8-1.5) L 04/17/17 05:39 Estimated GFR > 60 ml/min 04/17/17 05:39 BUN/Creatinine Ratio 10.00 % 04/17/17 05:39 Glucose 200 mg/dL (75-100) H 04/17/17 05:39 POC Glucose 176 (70-105) H 04/17/17 06:00 Lactic Acid 2.80 mmol/L (0.7-2.0) H* 04/13/17 13:09 Calcium 8.7 mg/dL (8.4-10.2) 04/17/17 05:39 Total Bilirubin 0.20 mg/dL (0.1-1.2) 04/17/17 05:39 AST 18 units/L (5-40) 04/17/17 05:39 ALT 28 units/L (7-56) 04/17/17 05:39 Alkaline Phosphatase 69 units/L (35-129) 04/17/17 05:39 C-Reactive Protein 0.40 mg/dL (0.00-1.30) 04/13/17 15:59 Total Protein 6.5 g/dL (6.3-8.2) 04/17/17 05:39 Albumin 3.5 g/dL (3.9-5) L 04/17/17 05:39 Albumin/Globulin Ratio 1.2 % 04/17/17 05:39
[2017-04-17] MEDS ORDERED: PERCOCET 5/325 PO PRN (09:39)
[2017-04-17] MEDS: NACL 0.9% 1000 ML 1,000 ML IV SCH (09:47)
[2017-04-17] MEDS: LOVENOX SUB-Q SCH (09:48)
--- NOTE | 2017-04-17 11:35 | Progress Note ---
Assessment and Plan - Patient Problems (1) Abscess of left foot Current Visit: No Status: Acute Plan to address problem: 1. Oral Augmentin or Levaquin to complete 10-14 days after discharge. 2. Surgery/ wound care/ ID follow-up within 7-10 days of discharge. Patient is requesting home health services (self-pay) to assist with wound care. 3. He needs to change the dressings and attend to wound daily. 4. Discharge okay from ID standpoint. (2) Diabetic foot ulcer Current Visit: No Status: Acute Qualifiers: Diabetic foot ulcer location: midfoot Diabetes mellitus type: type 1 Laterality: left Non-pressure ulcer stage: unspecified non-pressure ulcer stage Qualified Code(s): E10.621 - Type 1 diabetes mellitus with foot ulcer; L97.429 - Non-pressure chronic ulcer of left heel and midfoot with unspecified severity Plan to address problem: 1. Local care to foot. 2. Good glycemic control. Subjective Date of service: 04/17/17 Interval history: Completed MRI yesterday. Patient has no new complaints. Objective - Constitutional Vitals: Vital Signs Temp Pulse Resp BP Pulse Ox 97.9 F 87 16 123/79 97 04/17/17 07:00 04/17/17 07:00 04/17/17 10:00 04/17/17 07:00 04/17/17 00:00 Temperature -Last 24 Hours Temperature 97.9 F Temperature 98.9 F Temperature 98 F General appearance: Present: no acute distress - Respiratory Respiratory effort: normal - Cardiovascular Rhythm: regular Extremities: abnormal (left foot with moderate edema along plantar surface, plantar wound remains packed with seropurulent output, no new or acute changes) - Integumentary Integumentary: no rash - Labs CBC & Chem 7: 04/17/17 05:39 04/17/17 05:39 Labs: Abnormal lab results 04/16/17 04/16/17 04/16/17 Range/Units 11:53 16:23 21:11 Dent % (Auto) (0.0-7.3) % Lymph # (1.2-5.4) K/mm3 BUN (9-20) mg/dL Creatinine (0.8-1.5) mg/dL Glucose (75-100) mg/dL POC Glucose 154 H 180 H 150 H (70-105) Albumin (3.9-5) g/dL 04/17/17 04/17/17 04/17/17 Range/Units 05:39 05:39 06:00 Dent % (Auto) 10.1 H (0.0-7.3) % Lymph # 1.1 L (1.2-5.4) K/mm3 BUN 7 L (9-20) mg/dL Creatinine 0.7 L (0.8-1.5) mg/dL Glucose 200 H (75-100) mg/dL POC Glucose 176 H (70-105) Albumin 3.5 L (3.9-5) g/dL Microbiology 04/13/17 03:15 Peripheral/Venous Blood Culture - Preliminary NO GROWTH AFTER 4 DAYS 04/13/17 03:15 Peripheral/Venous Blood Culture - Preliminary NO GROWTH AFTER 4 DAYS Active Medications Acetaminophen (Tylenol) 650 mg PO Q4H PRN PRN Reason: Pain MILD(1-3)/Fever >100.5/GASTELUM Bisacodyl (Dulcolax) 10 mg IN QDAY PRN PRN Reason: Constipation unrelieved by MOM Enoxaparin Sodium (Lovenox) 40 mg SUB-Q QDAY [facility] Last Admin: 04/17/17 09:48 Dose: 40 mg Sodium Chloride (Nacl 0.9% 1000 Ml) 1,000 mls @ 75 mls/hr IV DIRECT [facility] Last Admin: 04/17/17 09:47 Dose: 75 mls/hr Ampicillin Sodium/Sulbactam Sodium (Unasyn/Ns 3 Gm/100 Ml) 3 gm in 100 mls @ 100 mls/hr IV Q6H MAYKEL PRN Reason: Protocol Last Admin: 04/17/17 10:50 Dose: 100 mls/hr Insulin Aspart (Novolog) 0 units SUB-Q ACHS MAYKEL PRN Reason: Protocol Last Admin: 04/17/17 08:26 Dose: 2 units Magnesium Hydroxide (Milk Of Magnesia) 30 ml PO Q4H PRN PRN Reason: Constipation Morphine Sulfate (Morphine) 2 mg IV Q4H PRN PRN Reason: Pain, Moderate (4-6) Last Admin: 04/16/17 03:51 Dose: 2 mg Ondansetron HCl (Zofran) 4 mg IV Q8H PRN PRN Reason: N/V unrelieved by Reglan Oxycodone/Acetaminophen (Percocet 5/325) 1 tab PO Q6H PRN PRN Reason: Pain - Imaging and cardiology Other: report reviewed (MRI left lower extremity - ill-defined collection; cannot exclude abscess; no osteomyelitis)
[2017-04-17] MEDS: MORPHINE IV PRN (16:57)
[2017-04-18] MEDS: UNASYN/NS 3 GM/100 ML 3 GM/100 ML BAG IV SCH ×4 (00:19→16:51)
[2017-04-18] MEDS: NACL 0.9% 1000 ML 1,000 ML IV SCH (01:01)
[2017-04-18] MEDS: NOVOLOG SUB-Q SCH ×4 (01:46→16:51)
[2017-04-18 06:53] LABS: Basophils % (Auto) 0.8 % (0.0-1.8); Eosinophils % (Auto) 3.7 % (0.0-4.3); Hematocrit 40.4 % (35.5-45.6); Hemoglobin 13.4 gm/dl (11.8-15.2); Mean Corpuscular HGB Conc 33 % (32-34); Mean Corpuscular Hemoglobin 29 pg (28-32); Mean Corpuscular Volume 88 fl (84-94); Platelet Count 184 K/mm3 (140-440); Red Blood Count 4.59 M/mm3 (3.65-5.03); Red Cell Distribution Width 13.3 % (13.2-15.2); White Blood Count 5.1 K/mm3 (4.5-11.0)
[2017-04-18 07:16] LABS: Anion Gap 18 mmol/L; BUN/Creatinine Ratio 11.42; Blood Urea Nitrogen 8 mg/dL (9-20); Calcium 8.5 mg/dL (8.4-10.2); Carbon Dioxide 26 mmol/L (22-30); Chloride 103.9 mmol/L (98-107); Glucose 146 mg/dL (75-100); Sodium 144 mmol/L (137-145)
[2017-04-18] MEDS: MORPHINE IV PRN (08:11)
[2017-04-18] MEDS: LOVENOX SUB-Q SCH ×2 (08:11→09:47)
--- NOTE | 2017-04-18 16:07 | Discharge Summary ---
Providers - Providers Date of Admission: 04/13/17 08:19 Date of discharge: 04/18/17 Attending physician: JENNIFER REEVES 04/13/17 13:17 Consult to Wound/ET Nurse [CONS] Routine Reason For Exam: wound eval Primary care physician: BELT TENDER Hospitalization Condition: Stable Hospital course: Was treated with Iv abx.Improved. Being discharged on po Abx. Disposition: DC/[place] HOME UNDER HOME HEALTH - Discharge Diagnoses (1) Diabetes mellitus Status: Chronic Qualifiers: Diabetes mellitus type: D Diabetes mellitus complication status: D Diabetes mellitus complication detail: D Diabetic retinopathy severity: D Proliferative retinopathy type: P Diabetes mellitus macular edema: D Diabetes mellitus senior care insulin use: D Laterality: L Chronic kidney disease stage: C Comment: Reasonably well controlled (2) Abscess of left foot Status: Acute Comment: Daily dressing and po Levaquin 750 qd for 14 days Core Measure Documentation - Palliative Care Palliative Care/ Comfort Measures: Not Applicable - Core Measures Any of the following diagnoses?: none Exam - Constitutional Vitals: Temp Pulse Resp BP Pulse Ox 98.2 F 55 L 20 131/88 97 04/18/17 07:00 04/18/17 07:00 04/18/17 07:00 04/18/17 07:00 04/18/17 07:00 General appearance: Present: no acute distress, well-nourished - EENT Eyes: Present: PERRL ENT: hearing intact, clear oral mucosa - Neck Neck: Present: supple, normal ROM - Respiratory Respiratory effort: normal Respiratory: bilateral: CTA - Cardiovascular Heart Sounds: Present: S1 & S2. Absent: rub, click - Extremities Extremities: pulses symmetrical, No edema Peripheral Pulses: within normal limits - Abdominal General gastrointestinal: Present: soft, non-tender, non-distended, normal bowel sounds Male genitourinary: Present: normal - Integumentary Integumentary: Present: clear, warm, dry - Musculoskeletal Musculoskeletal: gait normal, strength equal bilaterally - Psychiatric Psychiatric: appropriate mood/affect, intact judgment & insight - Neurologic Neurologic: CNII-XII intact, moves all extremities Plan Activity: no restrictions Weight Bearing Status: Weight Bear as Tolerated Diet: diabetic Wound: change dressing (every 1 to 2 days) Follow up with: PRIMARY CARE, [Primary Care Provider] - 3-5 Days
[2017-04-18 16:29] VITALS: BP 113/79
[2017-04-18] MEDS ORDERED: GLUCOTROL PO SCH (17:00)
[2017-04-18] MEDS ORDERED: GLUCOPHAGE PO SCH (17:00)
[2017-04-18] MEDS ORDERED: NON-FORMULARY (Metformin Hcl [Glucophage] 1,000 MG) PO SCH (22:00)
[2017-04-19] MEDS ORDERED: LEVAQUIN PO SCH (10:00)
== END 2017-04-18 19:19 | disposition home health service (06) | DRG 603 ==
LOC: ED 17:53 → 3A 04-13 08:19
PROVIDERS: ADMIT Hospitalist; ATTEND Internal Medicine
DX: L03.116 Cellulitis of left lower limb (principal); L02.612 Cutaneous abscess of left foot; E11.621 Type 2 diabetes mellitus with foot ulcer; E11.65 Type 2 diabetes mellitus with hyperglycemia; Z96.652 Presence of left artificial knee joint; L97.529 Non-pressure chronic ulcer of other part of left foot with unspecified severity; Z72.89 Other problems related to lifestyle
CPT/HCPCS: 36415; 80048; 80053; 82140; 82962; 85025; 85652; 86140; 87040; 96365; 96366; 96368; A9577; J0295; J1650; J1815; J1956; J2270; J2543; J3370; J7030